=== PATIENT | male | born 1940 | race Caucasian/White ===

== ENCOUNTER 2016-12-16 15:42 | Emergency (ER) | payer OTHER ==
[~2016-12-16 15:42] MED LIST: ALLO300T2 PO; AMLO5TAB2 PO; LISI20TA3 PO; SIMV20TA5 PO
[2016-12-16 15:45] VITALS: TEMP 36.8
[2016-12-16] MEDS ORDERED: ASPI325T39 PO (16:18)
--- NOTE | 2016-12-16 17:19 | EMERGENCY ROOM VISIT NOTE ---
History Report prepared by Kendell: Soledad Valdes Under the Supervision of: Dr. Alma Chambers D.O. First contact with patient: 16:07 Chief Complaint: HEADACHE Stated Complaint: HEADACHE History of Present Illness The patient is a 76 year old male who presents to the Emergency Room with complaints of an intermittent headache that started this afternoon, around 1200. The patient's daughter states that the patient's headaches were so severe that he was hitting himself in the back of the head. His daughter checked his blood pressure at that time and it was 78/49. She rechecked his blood pressure prior to coming into the ED and it was 101/54. His daughter is unsure of what the patient's blood pressure usually is. The patient's adds that the patient did not complain of any headaches this morning at home after he woke up and ate breakfast. He denies any headaches currently. He also denies chest pain and nausea. The patient's daughter reports that the patient was also complaining of his eyes burning earlier today. Per the patient's , the patient has complained about headaches in the past and has seen a neurologist for it. The patient's adds that the neurologist stated that due to the patient's dementia, he may not know the difference between a headache and dizziness. Additionally, the patient fell a couple weeks ago, but did not get evaluated. The patient also fell last night and hit his back on the toilet. The patient's daughter thinks that the patient fell as a result of dizziness after standing up from the toilet. He has a history of a TIA that occurred 2 years ago. With the TIA, the patient was unresponsive and started shaking. The patient 's daughter states that they called the patient's PCP and they said to bring her into the ED. Source of History: patient, family (daughter), spouse/significant other ( ) Onset: this afternoon, around 1200 Position: head Quality: other (headache) Timing: intermittent Associated Symptoms: No chest pain, No nausea Note: eyes burning bilaterally, recent falls Review of Systems See HPI for pertinent positives & negatives. A total of 10 systems reviewed and were otherwise negative. Past Medical & Surgical Medical Problems: (1) Colon cancer (2) Hyperlipemia (3) Hypertension Nos (4) Prostate cancer Family History No significant family history Social History Smoking Status: Never Smoker Alcohol Use: none Drug Use: none Marital Status: Housing Status: lives with family Occupation Status: retired Current/Historical Medications Scheduled Allopurinol (Zyloprim), 300 MG PO DAILY Amlodipine Besylate (Norvasc), 5 MG PO DAILY Aspirin (Aspirin Ec), 325 MG PO DAILY Lisinopril (Prinivil), 20 MG PO DAILY Simvastatin (Zocor), 20 MG PO QPM Allergies Coded Allergies: Penicillins (Verified Allergy, Severe, SICK HIVES, 12/16/16) Physical Exam Vital Signs Date Time Temp Pulse Resp B/P Pulse Ox O2 Delivery O2 Flow Rate FiO2 12/16/16 19:34 78 20 130/68 97 12/16/16 18:11 78 18 128/68 98 Room Air 12/16/16 16:55 77 12/16/16 15:45 36.8 79 18 114/67 99 Room Air Physical Exam GENERAL: alert, well appearing, well nourished, no distress, non-toxic HEAD: no evidence of trauma EYE EXAM: normal conjunctiva, PERRL and EOM's grossly intact OROPHARYNX: no exudate, no erythema, lips, buccal mucosa, and tongue normal and mucous membranes are moist NECK: supple, no nuchal rigidity, no adenopathy, non-tender, no step-offs LUNGS: Clear to auscultation. Normal chest wall mechanics HEART: no murmurs, S1 normal and S2 normal ABDOMEN: abdomen soft, non-tender, normo-active bowel sounds, no masses, no rebound or guarding. BACK: Back is symmetrical on inspection and there is no deformity, no midline tenderness, no CVA tenderness. SKIN: no rashes and no bruising UPPER EXTREMITIES: upper extremities are grossly normal. LOWER EXTREMITIES: No pitting edema. NEURO EXAM: Normal sensorium, cranial nerves II-XII intact, normal speech, no facial droop, no ataxia, no weakness of arms, no weakness of legs. No drift. Finger to nose intact. Gross sensation intact. GCS: 15. Medical Decision & Procedures ER Provider Diagnostic Interpretation: CERVICAL SPINE CT CT DOSE: 1009.38 mGy.cm HISTORY: Trauma fall TECHNIQUE: Multiaxial CT images of the cervical spine were performed and reformatted in the sagittal and coronal plane without the use of contrast. COMPARISON: None. FINDINGS: No acute bony abnormality. Considerable degenerative change throughout the entire cervical region. Grade 1 physiologic subluxation of C2 on C3. Moderate degenerative change of the C1-C2 articulation. No evidence for compression deformity. IMPRESSION: No fractures within the cervical spine. Considerable degenerative change HEAD CT NONCONTRAST CT DOSE: HISTORY: Trauma fall, headache TECHNIQUE: Multiaxial CT images of the head were performed without the use of intravenous contrast. Comparison: 2014 Findings: The paranasal sinuses and mastoid air cells are clear. The calvarium and skull base are intact. The ventricles and sulci are within normal limits. There is no mass, hematoma, midline shift, or acute infarct. Old infarcts and or encephalomalacia involving the cerebellar hemispheres bilaterally. Calcification of the basal ganglia. Mild cerebral atrophy considered to be age-related. Impression: No acute intracranial abnormality. Chronic change. Electronically signed by: Mohit Gao M.D. 12/16/2016 5:57 PM Dictated Date/Time: 12/16/2016 5:55 PM The status of this report is Signed. Draft = Not yet reviewed or approved by Radiologist. Signed = Reviewed and approved by Radiologist. <AttendingPhy></AttendingPhy> <FamilyPhy>Ubaldo Zuniga M.D. (MEDICAL)</ FamilyPhy> <PrimaryPhy>Ubaldo Zuniga M.D. (MEDICAL)</PrimaryPhy> <UnitNumber> [id number]</UnitNumber> <VisitNumber>[id number]</VisitNumber> <PatientName> STEVENJENNIFER </PatientName> <DateOfBirth>1940</DateOfBirth> < Location>[facility]</Location> <ServiceDate>12/16/16</ServiceDate> <MNE>ESINDI</MNE> <OrderingPhy>Alma Chambers DO</OrderingPhy> <OrderingPhyMNE>f rep ord dr dugan </OrderingPhyMNE> <DictatingPhyMNE>f rep dict dr dugan</DictatingPhyMNE> < CCListMNE>f rep ct mne</CCListMNE> <AdmittingPhyMNE>f pt admit dr dugan</ AdmittingPhyMNE> <AttendingPhyMNE>f pt attend dr mne</AttendingPhyMNE> Laboratory Results 12/16/16 18:00 Red Blood Count 4.10, Mean Corpuscular Volume 83.2, Mean Corpuscular Hemoglobin 27.6, Mean Corpuscular Hemoglobin Concent 33.1, Mean Platelet Volume 9.4, Neutrophils (%) (Auto) 77.2, Lymphocytes (%) (Auto) 15.4, Monocytes (%) (Auto) 6.6, Eosinophils (%) (Auto) 0.3, Basophils (%) (Auto) 0.3, Neutrophils # (Auto) 8.63, Lymphocytes # (Auto) 1.72, Monocytes # (Auto) 0.74, Eosinophils # (Auto) 0.03, Basophils # (Auto) 0.03 12/16/16 18:00 Test 12/16/16 00:00 12/16/16 18:00 Urine Color YELLOW Urine Appearance CLEAR (CLEAR) Urine pH 5.0 (4.5-7.5) Urine Specific [place] 1.024 (1.000-1.030) Urine Protein NEG (NEG) Urine Glucose (UA) NEG (NEG) Urine Ketones TRACE (NEG) Urine Occult Blood NEG (NEG) Urine Nitrite NEG (NEG) Urine Bilirubin NEG (NEG) Urine Urobilinogen NEG (NEG) Urine Leukocyte Esterase NEG (NEG) White Blood Count 11.17 K/uL (4.8-10.8) Red Blood Count 4.10 M/uL (4.7-6.1) Hemoglobin 11.3 g/dL (14.0-18.0) Hematocrit 34.1 % (42-52) Mean Corpuscular Volume 83.2 fL (80-100) Mean Corpuscular Hemoglobin 27.6 pg (25-34) Mean Corpuscular Hemoglobin Concent 33.1 g/dl (32-36) Platelet Count 311 K/uL (130-400) Mean Platelet Volume 9.4 fL (7.4-10.4) Neutrophils (%) (Auto) 77.2 % Lymphocytes (%) (Auto) 15.4 % Monocytes (%) (Auto) 6.6 % Eosinophils (%) (Auto) 0.3 % Basophils (%) (Auto) 0.3 % Neutrophils # (Auto) 8.63 K/uL (1.4-6.5) Lymphocytes # (Auto) 1.72 K/uL (1.2-3.4) Monocytes # (Auto) 0.74 K/uL (0.11-0.59) Eosinophils # (Auto) 0.03 K/uL (0-0.5) Basophils # (Auto) 0.03 K/uL (0-0.2) RDW Standard Deviation 42.2 fL (36.4-46.3) RDW Coefficient of Variation 14.0 % (11.5-14.5) Immature Granulocyte % (Auto) 0.2 % Immature Granulocyte # (Auto) 0.02 K/uL (0.00-0.02) Anion Gap 8.0 mmol/L (3-11) Estimated GFR () 42.0 Estimated GFR (Non- 36.3 BUN/Creatinine Ratio 13.7 (10-20) Calcium Level 8.5 mg/dl (8.5-10.1) Total Bilirubin 0.3 mg/dl (0.2-1) Aspartate Amino Transf (AST/SGOT) 24 U/L (15-37) Alanine Aminotransferase (ALT/SGPT) 20 U/L (12-78) Alkaline Phosphatase 110 U/L (45-117) Troponin I < 0.015 ng/ml (0-0.045) Total Protein 7.3 gm/dl (6.4-8.2) Albumin 3.7 gm/dl (3.4-5.0) Globulin 3.6 gm/dl (2.5-4.0) Albumin/Globulin Ratio 1.0 (0.9-2) Laboratory results per my review. ECG Indication: altered mental status Rate (beats per minute): 73 Rhythm: normal sinus Findings: no acute ischemic change, no ectopy ED Course 1619: The patient was evaluated in room A8. A complete history and physical exam was performed. 1915: Pt with no recurrent headache, acting normally per family. They are comfortable taking the pt home. Aware of need for recheck of Cr by PCP, discussed ddx with family. They state pt poor water drinker. Discussed sx to watch/return for, they verbalized understanding and were agreeable with plan. Medical Decision Differential Diagnosis includes but is not limited to headache, tension headache , cluster headache, migraine, subarachnoid hemorrhage, meningitis, mass, central venous thrombus, concussion, trauma and epidural/subdural hemorrhage. Pt acting normally here, doubt related to occult infection, cva, trauma, sah, cerebellar infarct/bleed/mass, doubt related to worsening CKD, doubt hypertensive urgency/emergency. Pt with dementia, prior hx of TUCKER and dizziness , followed by neurology. Pt well appearing throughout. VS stable. Impression Primary Impression: Headache Additional Impressions: Chronic kidney disease (CKD) Dementia Scribe Attestation The scribe's documentation has been prepared under my direction and personally reviewed by me in its entirety. I confirm that the note above accurately reflects all work, treatment, procedures, and medical decision making performed by me. Departure Information Dispostion Home / Self-Care Referrals Ubaldo Zuniga M.D. (MEDICAL) (PCP) Patient Instructions My [facility] Problem Qualifiers Primary Impression: Headache Headache type: unspecified Headache chronicity pattern: episodic headache Intractability: not intractable Qualified Codes: R51 - Headache Additional Impressions: Chronic kidney disease (CKD) Chronic kidney disease stage: unspecified stage Qualified Codes: N18.9 - Chronic kidney disease, unspecified Dementia Dementia type: unspecified type Dementia behavioral disturbance: without behavioral disturbance Qualified Codes: F03.90 - Unspecified dementia without behavioral disturbance
--- NOTE | 2016-12-16 17:59 | DIAGNOSTIC IMAGING REPORT ---
HEAD CT NONCONTRAST CT DOSE: HISTORY: Trauma fall, headache TECHNIQUE: Multiaxial CT images of the head were performed without the use of intravenous contrast. Comparison: 2014 Findings: The paranasal sinuses and mastoid air cells are clear. The calvarium and skull base are intact. The ventricles and sulci are within normal limits. There is no mass, hematoma, midline shift, or acute infarct. Old infarcts and or encephalomalacia involving the cerebellar hemispheres bilaterally. Calcification of the basal ganglia. Mild cerebral atrophy considered to be age-related. Impression: No acute intracranial abnormality. Chronic change. Electronically signed by: Mohit Gao M.D. 12/16/2016 5:57 PM Dictated Date/Time: 12/16/2016 5:55 PM
--- NOTE | 2016-12-16 18:01 | DIAGNOSTIC IMAGING REPORT ---
CERVICAL SPINE CT CT DOSE: 1009.38 mGy.cm HISTORY: Trauma fall TECHNIQUE: Multiaxial CT images of the cervical spine were performed and reformatted in the sagittal and coronal plane without the use of contrast. COMPARISON: None. FINDINGS: No acute bony abnormality. Considerable degenerative change throughout the entire cervical region. Grade 1 physiologic subluxation of C2 on C3. Moderate degenerative change of the C1-C2 articulation. No evidence for compression deformity. IMPRESSION: No fractures within the cervical spine. Considerable degenerative change Electronically signed by: Mohit Gao M.D. 12/16/2016 5:59 PM Dictated Date/Time: 12/16/2016 5:57 PM
[2016-12-16 18:07] LABS: BASO % 0.3 %; BASO ABS # 0.03 K/uL (0-0.2); COMPLETE YES; EOS % 0.3 %; HEMATOCRIT 34.1 % (42-52); IG% 0.2 %; LYMPH % 15.4 %; LYMPH ABS # 1.72 K/uL (1.2-3.4); MEAN CELL VOLUME 83.2 fL (80-100); MEAN CORPUSCULAR HEMOGLOBIN 27.6 pg (25-34); MEAN CORPUSCULAR HGB CONC 33.1 g/dl (32-36); MEAN PLATELET VOLUME 9.4 fL (7.4-10.4); MONO % 6.6 %; NEUT % 77.2 %; PLATELET COUNT 311 K/uL (130-400); WHITE BLOOD COUNT 11.17 K/uL (4.8-10.8)
[2016-12-16 18:27] LABS: ALT/SGPT 20 U/L (12-78); AST/SGOT 24 U/L (15-37); BLOOD UREA NITROGEN 25 mg/dl (7-18); BUN/CREATININE RATIO 13.7 (10-20); CALCIUM 8.5 mg/dl (8.5-10.1); CARBON DIOXIDE 27 mmol/L (21-32); CHLORIDE 104 mmol/L (98-107); GLUCOSE 80 mg/dl (70-99); POTASSIUM 4.2 mmol/L (3.5-5.1); SODIUM 139 mmol/L (136-145)
[2016-12-16 18:31] LABS: ALKALINE PHOSPHATASE 110 U/L (45-117)
[2016-12-16 19:01] LABS: URINE APPEARANCE CLEAR (CLEAR); URINE BILIRUBIN NEG (NEG); URINE COLOR YELLOW; URINE NITRITE NEG (NEG); URINE SPECIFIC GRAVITY 1.024 (1.000-1.030); UROBILINOGEN NEG (NEG); ZZUR CULT IF INDIC CLEAN CATCH NO
[2016-12-16 19:04] LABS: MANUAL MICROSCOPIC REQUIRED? NO; REVIEW REQ? NO
[2016-12-16 19:34] VITALS: BP 130/68; PULSE 78; O2SAT 97
[2016-12-17] MEDS ORDERED: DONE10TA12 PO (16:03)
[2016-12-17] MEDS ORDERED: NMN10 PO (16:03)
[2016-12-17] MEDS ORDERED: INDO-24 PO (20:51)
[2016-12-17] MEDS ORDERED: ASPI325T45 PO (20:51)
== END 2016-12-16 19:35 | disposition home or self-care (01) ==
LOC: C.EDB 15:42 → C.EDA 19:35
DX: R51 Headache (principal); I12.9 Hypertensive chronic kidney disease with stage 1 through stage 4 chronic kidney disease, or unspecified chronic kidney disease; N18.9 Chronic kidney disease, unspecified; E78.5 Hyperlipidemia, unspecified; F03.90 Unspecified dementia, unspecified severity, without behavioral disturbance, psychotic disturbance, mood disturbance, and anxiety; Z85.46 Personal history of malignant neoplasm of prostate; Z85.038 Personal history of other malignant neoplasm of large intestine; Z79.82 Long term (current) use of aspirin; Z79.899 Other long term (current) drug therapy; Z88.0 Allergy status to penicillin

== ENCOUNTER 2016-12-17 15:35 | Observation (INO) | payer OTHER ==
[~2016-12-17] VITALS: Ht 167.6 cm; Wt 53.2 kg
[~2016-12-17 15:35] MED LIST changes: +ASPI325T39 PO
[2016-12-17] MEDS ORDERED: DONE10TA12 PO (16:03)
[2016-12-17] MEDS ORDERED: NMN10 PO (16:03)
[2016-12-17] MEDS ORDERED: SODIUM CHLORIDE 0.9% 1000ML 1,000 ML IV STA (17:23)
[2016-12-17] MEDS ORDERED: SODIUM CHLORIDE 0.9% 1000ML 1,000 ML IV ONE (17:23)
--- NOTE | 2016-12-17 17:30 | EMERGENCY ROOM VISIT NOTE ---
History Report prepared by Kendell: Farrukh Brumfield Under the Supervision of: Dr. Kye Mo M.D. First contact with patient: 17:18 Chief Complaint: OTHER COMPLAINT Stated Complaint: CHEST PAIN History of Present Illness The patient is a 76 year old male who presents to the Emergency Room with complaints of a sudden fall occurring around 1400 today. The family states that the patient was complaining of vertigo and everything spinning earlier. He then fell, and he was taken in an ambulance. The family states that he was here recently for kidney issues. Per the family, the patient was complaining about back pain earlier, though he states that he does not have any now. The patient denies chest pain, abdominal pain, and urinary symptoms. He has dementia and does not recall what happened. By report there was chest pain and he apparently had altered mental status. When seen yesterday he had low blood pressure in the field but was normotensive here. his blood work showed mild renal insufficiency. Source of History: patient, family Onset: 1400 Position: other (global) Quality: other (fall) Timing: other (sudden) Associated Symptoms: + back pain, No abdominal pain, No chest pain, No urinary symptoms Note: Associated symptoms: Dizziness Review of Systems See HPI for pertinent positives & negatives. A total of 10 systems reviewed and were otherwise negative, however his symptoms seem unreliable secondary to his dementia Past Medical & Surgical Medical Problems: (1) BPH (benign prostatic hypertrophy) (2) Colon cancer (3) Dyslipidemia (4) Gout (5) History of CVA (cerebrovascular accident) (6) Hx of sinus bradycardia (7) Hyperlipemia (8) Hypertension Nos (9) Mixed Alzheimer's and vascular dementia (10) Prostate cancer Surgical Problems: (1) H/O colonoscopy (2) History of surgery on arm (3) S/P partial colectomy (4) S/p prostate brachytherapy Old medical records were reviewed. Nurse's notes were reviewed and I agree with. Family History No significant family history Social History Smoking Status: Never Smoker Alcohol Use: none Drug Use: none Marital Status: Housing Status: lives with family Occupation Status: retired Current/Historical Medications Scheduled Allopurinol (Zyloprim), 300 MG PO DAILY Amlodipine Besylate (Norvasc), 5 MG PO DAILY Aspirin (Aspirin), 1 TAB PO DAILY Donepezil Hydrochloride (Aricept), 10 MG PO HS Lisinopril (Prinivil), 20 MG PO BID Memantine (Namenda), 10 MG PO BID Simvastatin (Zocor), 20 MG PO QPM Allergies Coded Allergies: Penicillins (Verified Allergy, Severe, SICK HIVES, 12/17/16) Physical Exam Vital Signs Date Time Temp Pulse Resp B/P Pulse Ox O2 Delivery O2 Flow Rate FiO2 12/17/16 20:00 36.7 70 16 106/70 97 Room Air 12/17/16 19:00 36.7 70 16 108/74 97 Room Air 12/17/16 18:00 70 16 111/64 97 12/17/16 16:10 36.7 88 16 96/48 96 Room Air Physical Exam General: Non-ill appearing older male in no acute distress.. Alert to person and place. Answering questions appropriately. HEENT: Normal cephalic atraumatic. Pupils are equal round and reactive to light. Extraocular movements are intact. Oropharynx is pink with moist mucous membranes. No swelling of the mouth lips or tongue. Neck: Supple with a midline trachea. No meningeal signs or stiffness, no JVD or bruits. No Stridor. Chest: Clear to auscultation bilaterally. No wheezes or rhonchi. No increased work of breathing. Heart: regular rate and rhythm. Abdomen: Soft nontender, nondistended without rebound guarding or rigidity. Extremities: No cyanosis clubbing or edema. No calf tenderness or assymetry Spine/Back. Non tender to palpation. No CVA tenderness Skin: Good turgor without rashes. Neurologic exam: Cranial nerves two through 12 are intact. Motor and sensation are intact and symmetrical throughout. Medical Decision & Procedures ER Provider Diagnostic Interpretation: X-ray results as stated below per interpretation by me and the radiologist: CHEST ONE VIEW PORTABLE CLINICAL HISTORY: CHEST PAIN dyspnea COMPARISON STUDY: 12/02/2014 FINDINGS: The bones soft tissues and hemidiaphragms are normal. The cardiomediastinal silhouette is normal. The lungs are clear. The pulmonary vasculature is normal. IMPRESSION: Negative chest. Electronically signed by: Mohit Gao M.D. 12/17/2016 5:37 PM Dictated Date/Time: 12/17/2016 5:37 PM Laboratory Results Test 12/17/16 17:55 12/17/16 18:04 Immature Granulocyte % (Auto) 0.3 % White Blood Count 13.36 K/uL (4.8-10.8) Red Blood Count 3.89 M/uL (4.7-6.1) Hemoglobin 10.7 g/dL (14.0-18.0) Hematocrit 32.3 % (42-52) Mean Corpuscular Volume 83.0 fL (80-100) Mean Corpuscular Hemoglobin 27.5 pg (25-34) Mean Corpuscular Hemoglobin Concent 33.1 g/dl (32-36) Platelet Count 296 K/uL (130-400) Mean Platelet Volume 9.7 fL (7.4-10.4) Neutrophils (%) (Auto) 89.5 % Lymphocytes (%) (Auto) 7.2 % Monocytes (%) (Auto) 2.8 % Eosinophils (%) (Auto) 0.1 % Basophils (%) (Auto) 0.1 % Neutrophils # (Auto) 11.96 K/uL (1.4-6.5) Lymphocytes # (Auto) 0.96 K/uL (1.2-3.4) Monocytes # (Auto) 0.38 K/uL (0.11-0.59) Eosinophils # (Auto) 0.01 K/uL (0-0.5) Basophils # (Auto) 0.01 K/uL (0-0.2) Immature Granulocyte # (Auto) 0.04 K/uL (0.00-0.02) Prothrombin Time 9.6 SECONDS (9.0-12.0) Prothromb Time International Ratio 0.9 (0.9-1.1) Activated Partial Thromboplast Time 22.6 SECONDS (21.0-31.0) Partial Thromboplastin Ratio 0.9 Total Bilirubin 0.2 mg/dl (0.2-1) Direct Bilirubin < 0.1 mg/dl (0-0.2) Aspartate Amino Transf (AST/SGOT) 23 U/L (15-37) Alanine Aminotransferase (ALT/SGPT) 19 U/L (12-78) Alkaline Phosphatase 97 U/L (45-117) Total Protein 6.9 gm/dl (6.4-8.2) Albumin 3.4 gm/dl (3.4-5.0) Lipase 396 U/L (73-393) Bedside Troponin I 0.000 ng/ml (0-0.045) Lab results reviewed by me Medications Administered Medications (Trade) Dose Ordered Sig/Alvin Route Start Time Stop Time Status Last Admin Dose Admin Sodium Chloride 1,000 ml @ 999 mls/hr Q1H1M STAT IV 12/17/16 17:23 12/17/16 18:23 DC 12/17/16 18:05 999 MLS/HR Sodium Chloride (Nss 1000ml) 1,000 ml @ 150 mls/hr Q6H40M ONCE IV 12/17/16 17:23 12/17/16 21:44 DC 12/17/16 18:05 150 MLS/HR ECG Indication: other (fall) Rate (beats per minute): 70 Rhythm: normal sinus Findings: PVC (occasional), no acute ischemic change Comparison ECG Date: 12/16/16 Change: PVC are new ED Course 1718: Past medical records reviewed. The patient was evaluated in room B9, and a complete history and physical examination were performed. 1723: Sodium Chloride 1000 ml @ 150 mls/hr IV, Sodium Chloride 1000 ml @ 999 mls /hr IV 0: I reevaluated the patient, and he was resting comfortably. 1950: I discussed the patient's case with Dr. Florentino. He is going to evaluate the patient for further treatment Medical Decision Differentials include, but are not limited to; syncope, cardiac disease, seizure , infection, dehydration, electrolyte or metabolic abnormality. This patient comes in as described above . he's had frequent falls and this is a second visit in 24 hours. There may have a some confusion or chest pain as well and he is a very poor historian secondary dementia. At present, He appears in no distress . his initial blood pressure was low today in the field and responded to fluids. he's had no fever. IV access established and he was gently hydrated. I did not repeat his CAT scan of his head as he had one yesterday and has no external signs of trauma. EKG does not suggest acute coronary syndrome or arrhythmias. Cardiac markers are negative. His creatinine is up to 1.9 and he may be a little dry. He has nothing to suggest infection or sepsis thus far. I do think he needs to be admitted as he continues to have frequent falls to rule out cardiac and neurologic problems as well. I have consulted the [facility] hospitalist group who saw him in the emergency department and will admit him for these measures. Consults Time Called: 1944 Consulting Physician: Dr. Florentino Returned Call: 1949 I discussed the patient's case with Dr. Florentino. He is going to evaluate the patient for further treatment Impression Primary Impression: Weakness Additional Impressions: Frequent falls Chest pain Hypotension Scribe Attestation The scribe's documentation has been prepared under my direction and personally reviewed by me in its entirety. I confirm that the note above accurately reflects all work, treatment, procedures, and medical decision making performed by me. Departure Information Dispostion Being Evaluated By Hospitalist Referrals Ubaldo Zuniga M.D. (MEDICAL) (PCP) Patient Instructions My [facility] Problem Qualifiers
--- NOTE | 2016-12-17 17:38 | DIAGNOSTIC IMAGING REPORT ---
CHEST ONE VIEW PORTABLE CLINICAL HISTORY: CHEST PAIN dyspnea COMPARISON STUDY: 12/02/2014 FINDINGS: The bones soft tissues and hemidiaphragms are normal. The cardiomediastinal silhouette is normal. The lungs are clear. The pulmonary vasculature is normal. IMPRESSION: Negative chest. Electronically signed by: Mohit Gao M.D. 12/17/2016 5:37 PM Dictated Date/Time: 12/17/2016 5:37 PM
[2016-12-17 18:08] LABS: BASO % 0.1 %; BASO ABS # 0.01 K/uL (0-0.2); COMPLETE YES; EOS % 0.1 %; HEMATOCRIT 32.3 % (42-52); IG% 0.3 %; LYMPH % 7.2 %; LYMPH ABS # 0.96 K/uL (1.2-3.4); MEAN CORPUSCULAR HEMOGLOBIN 27.5 pg (25-34); MEAN CORPUSCULAR HGB CONC 33.1 g/dl (32-36); MEAN PLATELET VOLUME 9.7 fL (7.4-10.4); MONO % 2.8 %; NEUT % 89.5 %; PLATELET COUNT 296 K/uL (130-400); RED BLOOD COUNT 3.89 M/uL (4.7-6.1); WHITE BLOOD COUNT 13.36 K/uL (4.8-10.8)
[2016-12-17 18:17] LABS: INR 0.9 (0.9-1.1); PARTIAL THROMBOPLASTIN RATIO 0.9; PROTHROMBIN TIME (PATIENT) 9.6 SECONDS (9.0-12.0)
[2016-12-17 18:27] LABS: ALT/SGPT 19 U/L (12-78); AST/SGOT 23 U/L (15-37); BLOOD UREA NITROGEN 25 mg/dl (7-18); BUN/CREATININE RATIO 13.2 (10-20); CALCIUM 8.5 mg/dl (8.5-10.1); CARBON DIOXIDE 24 mmol/L (21-32); CHLORIDE 107 mmol/L (98-107); GLUCOSE 114 mg/dl (70-99); POTASSIUM 4.6 mmol/L (3.5-5.1); SODIUM 142 mmol/L (136-145)
[2016-12-17 18:30] LABS: ALKALINE PHOSPHATASE 97 U/L (45-117)
[2016-12-17] MEDS ORDERED: ASPI325T45 PO (20:51)
[2016-12-17] MEDS ORDERED: INDO-24 PO (20:51)
[2016-12-17] MEDS ORDERED: ONDANSETRON INJ 2 MG/ML 2 ML VIAL IV PRN (21:00)
[2016-12-17] MEDS ORDERED: SODIUM CHLORIDE 0.9% 1000ML 1,000 ML IV SCH (21:00)
[2016-12-17] MEDS ORDERED: ACETAMINOPHEN 325 MG TAB PO PRN (21:00)
[2016-12-17] MEDS ORDERED: IV FLUIDS COMPLETED PRN (21:15)
--- NOTE | 2016-12-17 21:39 | History and Physical ---
History & Physical Date & Time of Service: Dec 17, 2016 at 20:54 Chief Complaint: Chest Pain Primary Care Physician: Ubaldo Zuniga M.D. (MEDICAL) History of Present Illness Source: patient, family (daughter at bedside), clinic records, hospital records This is a 76 year old male with PMH of mixed Alzheimer's and vascular dementia, hx CVA, HTN, HL, and other problems listed below who presents to the ED s/p fall. History not reliable from patient due to dementia. Daughter at bedside states mental status is at baseline with short term memory loss, repetitiveness , disorientation to date. Today he was at his other daughter's house, was c/o dizziness, was seen ambulating, then at some point later was found on the floor and with incontinence of stool. Unknown if there was head trauma or LOC. Daughter states he fell total of 4x in past 2 days but details are unknown to her. She was told he fell on ice and in the bathroom but unclear the mechanism of fall. He is supposed to use a cane but ambulates unassisted. Pt was c/o occipital head throbbing earlier in the ER but patient denies headache or dizziness currently. Patient denies recent fever, URI symptoms, focal neuro symptoms, tinnitus, hearing loss, chest pain, SOB, N/V, abdominal pain, any other pain. Daughter states his stool was loose today. No known bleeding per the daughter. Patient lives with his who is not present currently. Unclear how well he has been eating. Daughter does not know the details of his prior CVA. Pt was brought to ER yesterday by other daughter for TUCKER and had CT head showing no acute findings. The family present at that time reported that 2 nights ago patient fell as a result of dizziness after standing up from the toilet. Past Medical/Surgical History Medical Problems: (1) BPH (benign prostatic hypertrophy) Status: Chronic (2) Colon cancer Status: Resolved (3) Dyslipidemia Status: Chronic (4) Gout Status: Chronic (5) History of CVA (cerebrovascular accident) Status: Chronic (6) Hx of sinus bradycardia Status: Chronic (7) Hyperlipemia Status: Chronic (8) Hypertension Nos Status: Chronic (9) Mixed Alzheimer's and vascular dementia Status: Chronic (10) Prostate cancer Status: Resolved Surgical Problems: (1) H/O colonoscopy Status: Chronic (2) History of surgery on arm Status: Chronic (3) S/P partial colectomy Status: Chronic (4) S/p prostate brachytherapy Status: Chronic Family History FH: CAD (coronary artery disease) FATHER Social History Smoking Status: Former Smoker (quit ) Alcohol Use: none Drug Use: none Marital Status: Housing status: lives with significant other Occupational Status: retired Immunizations History of Influenza Vaccine: Unknown Influenza Vaccine Date: Jul 23, 2009 History of Tetanus Vaccine?: Unknown History of Pneumococcal: Unknown Pneumococcal Date: Dec 22, 2008 History of Hepatitis B Vaccine: Unknown Multi-Drug Resistant Organisms History of MDRO: No Allergies Coded Allergies: Penicillins (Verified Allergy, Severe, SICK HIVES, 12/17/16) Home Medications Scheduled Allopurinol (Zyloprim), 300 MG PO DAILY Amlodipine Besylate (Norvasc), 5 MG PO DAILY Aspirin (Aspirin), 1 TAB PO DAILY Donepezil Hydrochloride (Aricept), 10 MG PO HS Lisinopril (Prinivil), 20 MG PO BID Memantine (Namenda), 10 MG PO BID Simvastatin (Zocor), 20 MG PO QPM Review of Systems Unable to obtain a reliable ROS due to patient's dementia. Physical Exam Vital Signs Date Time Temp Pulse Resp B/P Pulse Ox O2 Delivery O2 Flow Rate FiO2 12/17/16 18:00 70 16 111/64 97 12/17/16 16:10 36.7 88 16 96/48 96 Room Air General Appearance: + thin, + pertinent finding (alert pleasantly confused 76 year old male, daughter at bedside) Head: normocephalic, atraumatic Eyes: normal inspection, PERRL, EOMI ENT: hearing grossly normal, pharynx normal Neck: supple, trachea midline Respiratory/Chest: lungs clear, normal breath sounds, no respiratory distress Cardiovascular: regular rate, rhythm, no murmur Abdomen/GI: normal bowel sounds, non tender, soft Extremities/Musculoskelatal: no calf tenderness, no pedal edema 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 poor short term memory. ) Skin: normal color, warm/dry, + pertinent finding (poor skin turgor) Diagnostics Laboratory Results Results Past 24 Hours Test 12/17/16 17:55 Range/Units White Blood Count 13.36 4.8-10.8 K/uL Red Blood Count 3.89 4.7-6.1 M/uL Hemoglobin 10.7 14.0-18.0 g/dL Hematocrit 32.3 42-52 % Mean Corpuscular Volume 83.0 80-100 fL Mean Corpuscular Hemoglobin 27.5 25-34 pg Mean Corpuscular Hemoglobin Concent 33.1 32-36 g/dl Platelet Count 296 130-400 K/uL Mean Platelet Volume 9.7 7.4-10.4 fL Neutrophils (%) (Auto) 89.5 % Lymphocytes (%) (Auto) 7.2 % Monocytes (%) (Auto) 2.8 % Eosinophils (%) (Auto) 0.1 % Basophils (%) (Auto) 0.1 % Neutrophils # (Auto) 11.96 1.4-6.5 K/uL Lymphocytes # (Auto) 0.96 1.2-3.4 K/uL Monocytes # (Auto) 0.38 0.11-0.59 K/uL Eosinophils # (Auto) 0.01 0-0.5 K/uL Basophils # (Auto) 0.01 0-0.2 K/uL RDW Standard Deviation 42.7 36.4-46.3 fL RDW Coefficient of Variation 14.1 11.5-14.5 % Immature Granulocyte % (Auto) 0.3 % Immature Granulocyte # (Auto) 0.04 0.00-0.02 K/uL Prothrombin Time 9.6 9.0-12.0 SECONDS Prothromb Time International Ratio 0.9 0.9-1.1 Activated Partial Thromboplast Time 22.6 21.0-31.0 SECONDS Partial Thromboplastin Ratio 0.9 Sodium Level 142 136-145 mmol/L Potassium Level 4.6 3.5-5.1 mmol/L Chloride Level 107 98-107 mmol/L Carbon Dioxide Level 24 21-32 mmol/L Anion Gap 11.0 3-11 mmol/L Blood Urea Nitrogen 25 7-18 mg/dl Creatinine 1.90 0.60-1.40 mg/dl Est Creatinine Clear Calc Drug Dose 25.7 ml/min Estimated GFR () 39.4 Estimated GFR (Non- 34.0 BUN/Creatinine Ratio 13.2 10-20 Random Glucose 114 70-99 mg/dl Calcium Level 8.5 8.5-10.1 mg/dl Total Bilirubin 0.2 0.2-1 mg/dl Direct Bilirubin < 0.1 0-0.2 mg/dl Aspartate Amino Transf (AST/SGOT) 23 15-37 U/L Alanine Aminotransferase (ALT/SGPT) 19 12-78 U/L Alkaline Phosphatase 97 45-117 U/L Total Protein 6.9 6.4-8.2 gm/dl Albumin 3.4 3.4-5.0 gm/dl Lipase 396 73-393 U/L Diagnostic Radiology CHEST ONE VIEW PORTABLE CLINICAL HISTORY: CHEST PAIN dyspnea COMPARISON STUDY: 12/02/2014 FINDINGS: The bones soft tissues and hemidiaphragms are normal. The cardiomediastinal silhouette is normal. The lungs are clear. The pulmonary vasculature is normal. IMPRESSION: Negative chest. Impression Assessment and Plan HEADACHE AND MULTIPLE FALLS CT head 12/16/16- no acute abnormality; + old infarcts and or encephalomalacia involving the cerebellar hemispheres bilaterally. Calcification of the basal ganglia. Mild cerebral atrophy considered to be age-related. CT c-spine 12/16/16- No fractures within the cervical spine. Considerable degenerative change Follows w/ neurology; on last clinic note Dr. Malcolm stated to obtain MRI with and without contrast if headaches persist Will hydrate overnight with goal of improving Creatinine before exposing pt to contrast for MRI Check orthostatic VS Consult neurology PT and OT evaluations CHIOMA Creat is 1.9; baseline 1.1 in May 2016 Likely prerenal from dehydration Given IVF's in ER Continue gentle IVF's Hold lisinopril BORDERLINE BP Hold home antihypertensives Treating with IVF's ANEMIA Unknown etiology VASCULAR DEMENTIA Continue aspirin and statin ALZHEIMER'S DEMENTIA Continue Aricept and Namenda DYSLIPIDEMIA Continue DVT PROPHYLAXIS Heparin SQ DISPOSITION Lives with ; daughter Kalli who is closely involved with patient's care was updated by phone by Dr. Reid (phone ) Consult social media content specialist for discharge planning Follows with Dr. Zuniga for primary care Patient seen in collaboration with Dr. Reid. Please see her addendum. I have seen, examined and discussed this patient with Sherrill Vargas and I agree with the above note. Patient with recent frequent headaches, occasional vertigo and unwitnessed falls. Patient is a poor historian due to dementia and family are not good historians either. Vitals stable. PE: General- awake; alert; NAD Eyes- EOMI; no scleral icterus Neck- no stridor; trachea midline Lungs- CTA bilaterally; no wheezes/crackles Heart- RRR; no m/r/g Abdomen- soft; NTND; nBS Back- no gross abnormalities Extremities- no c/c/e; no deformity Neuro- strength 5/5 bilateral UE and LE Skin- no appreciable rash or bruise Labs, imaging and EKG reviewed. Headaches/falls: Neither patient nor family provide clear history. Patient follows with Dr. Roberts. Consult Neurology. Dr. Roberts mentioned MRI combo if symptoms persist. Will hold at this time to improve renal function prior. Perhaps dementia medications could be contributing to dizziness? Check orthostatics. PT/OT evaluations. CT head and c-spine from yesterday negative. HTN: Blood pressures low-normal. Hold antihypertensives. CHIOMA: Last creatinine in May was normal. Hold antihypertensives. Gentle hydration with IVF's. Agree with remainder of plan as outlined above. VTE Prophylaxis VTE Risk Assessment Done? Y/N: Yes Risk Level: Moderate
[2016-12-17 21:42] VITALS: BP 151/70; PULSE 88; TEMP 37.1; O2SAT 94
[2016-12-17 22:20] VITALS: BP 151/70; PULSE 88; TEMP 37.1; Ht 167.6 cm; Wt 53.2 kg
[2016-12-17] MEDS: HEPARIN SOD 5000 UNIT/0.5 ML CARP SQ SCH (22:32)
[2016-12-17 23:25] VITALS: BP 109/64; PULSE 73; TEMP 36.8; O2SAT 97
[2016-12-18 06:26] LABS: HEMATOCRIT 30.7 % (42-52); MEAN CELL VOLUME 84.6 fL (80-100); MEAN CORPUSCULAR HEMOGLOBIN 27.5 pg (25-34); MEAN CORPUSCULAR HGB CONC 32.6 g/dl (32-36); PLATELET COUNT 278 K/uL (130-400); RED BLOOD COUNT 3.63 M/uL (4.7-6.1); WHITE BLOOD COUNT 8.22 K/uL (4.8-10.8)
[2016-12-18] MEDS: HEPARIN SOD 5000 UNIT/0.5 ML CARP SQ SCH ×3 (06:30→21:47)
[2016-12-18 06:56] LABS: BUN/CREATININE RATIO 16.5 (10-20); CALCIUM 8.4 mg/dl (8.5-10.1); CREATININE 1.3 mg/dl (0.60-1.40); POTASSIUM 4.4 mmol/L (3.5-5.1)
[2016-12-18 07:29] VITALS: BP 104/62; PULSE 74; TEMP 36.9; O2SAT 95
[2016-12-18] MEDS ORDERED: MEMANTINE 10 MG TAB PO SCH (09:00)
[2016-12-18] MEDS: ALLOPURINOL 300 MG TAB PO SCH (09:47)
[2016-12-18] MEDS: ASPIRIN 325 MG ECTAB PO SCH (09:47)
--- NOTE | 2016-12-18 10:38 | DIAGNOSTIC IMAGING REPORT ---
HEAD CT NONCONTRAST CT DOSE: 601.98 mGy.cm HISTORY: Trauma. Mental status change. fall with head trauma question shd TECHNIQUE: Multiaxial CT images of the head were performed without the use of intravenous contrast. Comparison: 12/16/2016 Findings: The paranasal sinuses and mastoid air cells are clear. Stable scattered encephalomalacia of the cerebellar hemispheres bilaterally. Mild atrophy unchanged. Mild chronic small vessel change also stable. No evidence for new or interval process. No change in the prior exam. Impression: Chronic and age-related change. No acute intracranial abnormality. No change from the prior study. Electronically signed by: Mohit Gao M.D. 12/18/2016 10:37 AM Dictated Date/Time: 12/18/2016 10:32 AM
--- NOTE | 2016-12-18 11:18 | Progress Note ---
Medicine Progress Note Date & Time of Visit: Dec 18, 2016 at 11:10. Subjective patient seen resting in bedside chair oriented x 2, pleasant, not in distress comfortable denies headache, dizziness, nausea, focal weakness/numbness no abdominal pain, diarrhea denies other symptoms Objective Last 8 Hrs Date Time Temp Pulse Resp B/P Pulse Ox O2 Delivery O2 Flow Rate FiO2 12/18/16 07:29 36.9 74 16 104/62 95 Room Air Physical Exam: General- oriented x 2, not in distress, speaks in sentences with no effort Eyes- EOMI, anicteric ENT- oropharynx clear Neck- supple, no JVD, no adenopathy Lungs- clear breath sounds bilaterally Heart- normar rate, regular rhythm; no murmurs Abdomen- normal bowel sounds, soft, nontender Extremities- no pretibial edema, no calf tenderness; peripheral pulses intact Neuro- alert, oriented x 2; no gross focal neuro deficits Skin- warm & dry Laboratory Results: Last 24 Hours Test 12/17/16 17:55 12/17/16 18:04 12/18/16 06:01 12/18/16 10:42 White Blood Count 13.36 K/uL 8.22 K/uL Red Blood Count 3.89 M/uL 3.63 M/uL Hemoglobin 10.7 g/dL 10.0 g/dL Hematocrit 32.3 % 30.7 % Mean Corpuscular Volume 83.0 fL 84.6 fL Mean Corpuscular Hemoglobin 27.5 pg 27.5 pg Mean Corpuscular Hemoglobin Concent 33.1 g/dl 32.6 g/dl Platelet Count 296 K/uL 278 K/uL Mean Platelet Volume 9.7 fL 10.0 fL Neutrophils (%) (Auto) 89.5 % Lymphocytes (%) (Auto) 7.2 % Monocytes (%) (Auto) 2.8 % Eosinophils (%) (Auto) 0.1 % Basophils (%) (Auto) 0.1 % Neutrophils # (Auto) 11.96 K/uL Lymphocytes # (Auto) 0.96 K/uL Monocytes # (Auto) 0.38 K/uL Eosinophils # (Auto) 0.01 K/uL Basophils # (Auto) 0.01 K/uL RDW Standard Deviation 42.7 fL 44.1 fL RDW Coefficient of Variation 14.1 % 14.2 % Immature Granulocyte % (Auto) 0.3 % Immature Granulocyte # (Auto) 0.04 K/uL Prothrombin Time 9.6 SECONDS Prothromb Time International Ratio 0.9 Activated Partial Thromboplast Time 22.6 SECONDS Partial Thromboplastin Ratio 0.9 Sodium Level 142 mmol/L 143 mmol/L Potassium Level 4.6 mmol/L 4.4 mmol/L Chloride Level 107 mmol/L 109 mmol/L Carbon Dioxide Level 24 mmol/L 26 mmol/L Anion Gap 11.0 mmol/L 8.0 mmol/L Blood Urea Nitrogen 25 mg/dl 22 mg/dl Creatinine 1.90 mg/dl 1.30 mg/dl Est Creatinine Clear Calc Drug Dose 25.7 ml/min 37.5 ml/min Estimated GFR () 39.4 62.3 Estimated GFR (Non- 34.0 53.8 BUN/Creatinine Ratio 13.2 16.5 Random Glucose 114 mg/dl 85 mg/dl Calcium Level 8.5 mg/dl 8.4 mg/dl Total Bilirubin 0.2 mg/dl Direct Bilirubin < 0.1 mg/dl Aspartate Amino Transf (AST/SGOT) 23 U/L Alanine Aminotransferase (ALT/SGPT) 19 U/L Alkaline Phosphatase 97 U/L Total Protein 6.9 gm/dl Albumin 3.4 gm/dl Lipase 396 U/L Bedside Troponin I 0.000 ng/ml Assessment & Plan 76 male with history of Hypertension, CVA, Dementia - Alzheimer and Vascular presenting with multiple falls. HEADACHE AND MULTIPLE FALLS UNDERLYING DEMENTIA - Alzheimer and Vascular Type CT head 12/16/16- no acute abnormality; + old infarcts and or encephalomalacia involving the cerebellar hemispheres bilaterally. Calcification of the basal ganglia. Mild cerebral atrophy considered to be age-related. CT c-spine 12/16/16- No fractures within the cervical spine. Considerable degenerative change Follows w/ neurology Dr. Malcolm - repeat CT head 12/18/16: no acute findings - Falls may be due to Orthostasis, BP borderline in the setting of Dementia, Old Cerebellar Infarcts check Ortho VS d/c Amlo and Lisinopril - Neurology consulted, awaiting recommendations ACUTE RENAL FAILURE Creat is 1.9; baseline 1.1 in May 2016 Likely prerenal from dehydration - given IV fluids crea improved to 1.3 - d/c Lisinopril monitor ANEMIA - Baseline ~12 now 10 - no signs of overt GI bleed - check anemia panel VASCULAR DEMENTIA Continue aspirin and statin ALZHEIMER'S DEMENTIA Continue Aricept and Namenda DYSLIPIDEMIA Continue Simvastatin DVT PROPHYLAXIS Heparin SQ DISPOSITION Lives with ; daughter Kalli who is closely involved with patient's care was updated by phone by Dr. Reid (phone ) may need SNF/Rehab Consult home health care social worker for discharge planning Follows with Dr. Zuniga for primary care Current Inpatient Medications: Current Inpatient Medications Medications (Trade) Dose Ordered Sig/Alvin Route Start Time Stop Time Status Last Admin Dose Admin Heparin Sodium (Porcine) (Heparin Sq 5000 Unit/0.5ml) 5,000 unit Q8 SQ 12/17/16 22:00 01/16/17 20:59 12/18/16 06:30 5,000 UNIT Acetaminophen (Tylenol Tab) 650 mg Q4H PRN PO 12/17/16 21:00 01/16/17 20:59 Ondansetron HCl (Zofran Inj) 4 mg Q6H PRN IV 12/17/16 21:00 01/16/17 20:59 Miscellaneous (Iv Fluids Completed) 1 ea PRN PRN N/A 12/17/16 21:15 12/17/17 21:14 Allopurinol (Zyloprim Tab) 300 mg DAILY PO 12/18/16 09:00 01/17/17 08:59 12/18/16 09:47 300 MG Aspirin (Ecotrin Tab) 325 mg DAILY PO 12/18/16 09:00 01/17/17 08:59 12/18/16 09:47 325 MG Donepezil HCl (Aricept Tab) 10 mg HS PO 12/18/16 21:00 01/17/17 20:59 Memantine (Namenda Tab) 10 mg BID PO 12/18/16 09:00 01/17/17 08:59 12/18/16 09:48 10 MG Simvastatin (Zocor Tab) 20 mg QPM PO 12/18/16 21:00 01/17/17 20:59
[2016-12-18 12:11] VITALS: BP_SYST 124; BP_SYST 135; BP_SYST 142; BP_DIAS 64; BP_DIAS 77; PULSE 66; PULSE 75
--- NOTE | 2016-12-18 13:52 | Neurology Consultation ---
Neurology Consultation Date of Consultation: Dec 18, 2016. Attending Physician: Basim Moran MD Primary Care Physician: Ubaldo Zuniga M.D. (MEDICAL) Reason for Consultation: headache falls History of Present Illness Source: patient, family, spouse Ti is a 76 year old male with PMH of mixed Alzheimer's and vascular dementia , hx CVA, HTN, HL. Who was brought to the ED because of a fall. and sister are at bedside states mental status is at baseline with short term memory loss , repetitiveness, disorientation to date. He was at his daughter's house, was c /o dizziness, was seen ambulating, he had a fall and then was incontinent of stool. His states he doesn't fall at home but he has had 2 falls at his daughters house. He was told to use a cane but ambulates. he has been leaving the house without telling his where he is going. He usually walks to his daughters or to his sisters house which is several blocks away and he has to cross a busy street. She states he eats well at home but not sure how he eats at this daughters home. he fell 2 days ago patient fell as a result of dizziness after standing up from the toilet. He was found to have acute kidney failure and was given IV fluids. He currently denies pain. His also states he is seeing thinks and acting agressive at time. He has been on the Aricept and the Namenda for about 2 years. She is not aware of the strokes in the past but she is his 2nd . denies CP, SOB, abdominal pain, weakness, numbness tingling, vision changes. Past Medical/Surgical History Medical Problems: (1) Chest pain Status: Acute (2) Closed head injury Status: Acute (3) Frequent falls Status: Acute (4) Headache Status: Acute (5) Hypotension Status: Acute (6) Weakness Status: Acute Social History Alcohol Use: none Drug Use: none Marital Status: Housing Status: lives with family Occupation Status: retired Allergies Coded Allergies: Penicillins (Verified Allergy, Severe, SICK HIVES, 12/17/16) Current Inpatient Medications Current Inpatient Medications Medications (Trade) Dose Ordered Sig/Alvin Route Start Time Stop Time Status Last Admin Dose Admin Heparin Sodium (Porcine) (Heparin Sq 5000 Unit/0.5ml) 5,000 unit Q8 SQ 12/17/16 22:00 01/16/17 20:59 12/18/16 06:30 5,000 UNIT Acetaminophen (Tylenol Tab) 650 mg Q4H PRN PO 12/17/16 21:00 01/16/17 20:59 Ondansetron HCl (Zofran Inj) 4 mg Q6H PRN IV 12/17/16 21:00 01/16/17 20:59 Miscellaneous (Iv Fluids Completed) 1 ea PRN PRN N/A 12/17/16 21:15 12/17/17 21:14 Allopurinol (Zyloprim Tab) 300 mg DAILY PO 12/18/16 09:00 01/17/17 08:59 12/18/16 09:47 300 MG Aspirin (Ecotrin Tab) 325 mg DAILY PO 12/18/16 09:00 01/17/17 08:59 12/18/16 09:47 325 MG Donepezil HCl (Aricept Tab) 10 mg HS PO 12/18/16 21:00 01/17/17 20:59 Memantine (Namenda Tab) 10 mg BID PO 12/18/16 09:00 01/17/17 08:59 12/18/16 09:48 10 MG Simvastatin (Zocor Tab) 20 mg QPM PO 12/18/16 21:00 01/17/17 20:59 Physical Exam Vital Signs (Past 24 Hrs): Date Time Temp Pulse Resp B/P Pulse Ox O2 Delivery O2 Flow Rate FiO2 12/18/16 12:11 66 124/64 69 135/77 75 142/77 12/18/16 09:43 Room Air 12/18/16 07:29 36.9 74 16 104/62 95 Room Air 12/17/16 23:30 Room Air 12/17/16 23:25 36.8 73 18 109/64 97 Room Air 12/17/16 22:20 37.1 88 16 151/70 Room Air 12/17/16 21:42 37.1 88 16 151/70 94 Room Air 12/17/16 21:00 36.7 70 16 112/74 97 Room Air 12/17/16 20:00 36.7 70 16 106/70 97 Room Air 12/17/16 19:00 36.7 70 16 108/74 97 Room Air 12/17/16 18:00 70 16 111/64 97 12/17/16 16:10 36.7 88 16 96/48 96 Room Air Physical Exam: Constitutional appearance nourished, normal Ears, Nose, Mouth and Throat: mucous membranes moist, no injection and skin multiple skin abrasions and ecchymosis Cardiovascular: normal S-1 and S-2 and regular rate and rhythm Respiratory: clear to auscultation (CTA) and no rales, rhonchi or wheeze Musculoskeletal: no peripheral edema and good distal pulses Skin: no stigmata of neurocutaneous disease noted and normal and intact Eyes: extraocular muscles intact (EOMI) and pupils equal, round and reactive to light (PERRL) NEUROLOGIC EXAMINATION: Mental status: Alert and interactive Oriented to [facility], doesn't know the year but knows its spring, can say no ifs ands or buts, can stick out tongue point to the ceiling, close eyes Oriented to person Speech fluent with no evidence of aphasia Cranial Nerves smile, eye brow raise symmetric, tongue midline Reflexes: Deep tendon reflexes were symmetrical and graded 2/5. Plantar responses were flexor. 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, hip flex patellar flex ext plantar flex ext Laboratory Results Past 24 Hours: 12/18/16 06:01 12/18/16 06:01 Test 12/17/16 17:55 12/17/16 18:04 12/18/16 06:01 12/18/16 11:52 Immature Granulocyte % (Auto) 0.3 % White Blood Count 13.36 K/uL (4.8-10.8) Red Blood Count 3.89 M/uL (4.7-6.1) 3.63 M/uL (4.7-6.1) Hemoglobin 10.7 g/dL (14.0-18.0) Hematocrit 32.3 % (42-52) Mean Corpuscular Volume 83.0 fL (80-100) 84.6 fL (80-100) Mean Corpuscular Hemoglobin 27.5 pg (25-34) 27.5 pg (25-34) Mean Corpuscular Hemoglobin Concent 33.1 g/dl (32-36) 32.6 g/dl (32-36) Platelet Count 296 K/uL (130-400) Mean Platelet Volume 9.7 fL (7.4-10.4) 10.0 fL (7.4-10.4) Neutrophils (%) (Auto) 89.5 % Lymphocytes (%) (Auto) 7.2 % Monocytes (%) (Auto) 2.8 % Eosinophils (%) (Auto) 0.1 % Basophils (%) (Auto) 0.1 % Neutrophils # (Auto) 11.96 K/uL (1.4-6.5) Lymphocytes # (Auto) 0.96 K/uL (1.2-3.4) Monocytes # (Auto) 0.38 K/uL (0.11-0.59) Eosinophils # (Auto) 0.01 K/uL (0-0.5) Basophils # (Auto) 0.01 K/uL (0-0.2) Immature Granulocyte # (Auto) 0.04 K/uL (0.00-0.02) Prothrombin Time 9.6 SECONDS (9.0-12.0) Prothromb Time International Ratio 0.9 (0.9-1.1) Activated Partial Thromboplast Time 22.6 SECONDS (21.0-31.0) Partial Thromboplastin Ratio 0.9 Total Bilirubin 0.2 mg/dl (0.2-1) Direct Bilirubin < 0.1 mg/dl (0-0.2) Aspartate Amino Transf (AST/SGOT) 23 U/L (15-37) Alanine Aminotransferase (ALT/SGPT) 19 U/L (12-78) Alkaline Phosphatase 97 U/L (45-117) Total Protein 6.9 gm/dl (6.4-8.2) Albumin 3.4 gm/dl (3.4-5.0) Lipase 396 U/L (73-393) Bedside Troponin I 0.000 ng/ml (0-0.045) RDW Standard Deviation 44.1 fL (36.4-46.3) RDW Coefficient of Variation 14.2 % (11.5-14.5) Anion Gap 8.0 mmol/L (3-11) Est Creatinine Clear Calc Drug Dose 37.5 ml/min Estimated GFR () 62.3 Estimated GFR (Non- 53.8 BUN/Creatinine Ratio 16.5 (10-20) Calcium Level 8.4 mg/dl (8.5-10.1) Magnesium Level 2.5 mg/dl (1.8-2.4) Vitamin B12 Level 298 pg/mL (211-911) Imaging CT head- Findings: The paranasal sinuses and mastoid air cells are clear. The calvarium and skull base are intact. The ventricles and sulci are within normal limits. There is no mass, hematoma, midline shift, or acute infarct. Old infarcts and or encephalomalacia involving the cerebellar hemispheres bilaterally. Calcification of the basal ganglia. Mild cerebral atrophy considered to be age-related. Impression 76 year old male s/p fall and headaches with hx dementia Plan 1. no acute findings on CT head 2. unclear the mechanism of the fall 3. Aricept 10 mg hs- d/c due to reported hallucinations 4. stopped Namenda will re assess in out patient clinic 5. PT. OT for discharge needs 6. EEG may be helpful not clear if there was a LOC- waiting read 7. continue aspirin 325 mg daily 8. would consult psychiatry for behavior issues 9. need home health evaluation for safety issues or 23/04 supervision I have seen and discussed above patient with Dr Moe Kendall, neurology I have seen this man reviewed hnis imaging and eeg and his history whcih nfortunately from him is less than reliable due to dementia Behavior has been worsening and he has worsening renal function so meds may not be clearing and frankly if the diagnosis of a vascular dementia is correct then there is little role for aricept of namenda and agree with stopping for now and revisiting issues in the clinic post discharge exam nonfocal ct shows no significant post traumatic issues and eeg normal so would suggest that meds be stopped and psychiatry advise re behavioral control measures Moe Galvan Md ( discussed and reviewed wit Glendy Paulson )
[2016-12-18 16:03] VITALS: BP 113/66; PULSE 70; TEMP 36.7; O2SAT 97
[2016-12-18 16:15] VITALS: O2SAT 97
--- NOTE | 2016-12-18 18:39 | ELECTROENCEPHALOGRAPH REPORT ---
CLINICAL DIAGNOSES: Syncope with incontinence, question seizure. ELECTROENCEPHALOGRAM DIAGNOSIS: Essentially normal during wakefulness. DESCRIPTION OF TRACING: This EEG was done as a bedside recording and was of good technical quality with few or no muscle movement artifacts. Simultaneous video analysis of patient movement and behavior was recorded. Photic stimulation is the only stimulus parameter utilized. Drowsiness and light sleep were not recorded. Under these conditions, there is evidence for normal appearing background rhythm in the alpha range of up to 10 Hz of maximum frequency and 30 microvolts of maximum amplitude. This is maximum posterior head regions bilaterally symmetrical. Polymorphic mid frequency theta activity is seen over all head regions without focal or regional predominance. Anterior head region maximum bilaterally symmetrical low voltage fast activity in the beta range is present. Photic stimulation provoked some modest driving response without a photomyogenic or photoparoxysmal component. At no time during the waking tracing is there evidence for potentially epileptogenic activity in the form of polyspike or spike wave bursts, focal sharp waves or focal spikes. INTERPRETATION: This EEG is essentially normal without evidence for focal or generalized encephalopathy and without evidence for potentially epileptogenic activity. [facility]
[2016-12-18] MEDS ORDERED: DONEPEZIL HCL 10 MG TAB PO SCH (21:00)
[2016-12-18] MEDS ORDERED: SIMVASTATIN 20 MG TAB PO SCH (21:00)
[2016-12-18] MEDS ORDERED: MEMANTINE 5 MG TAB PO SCH (21:00)
[2016-12-18 23:45] VITALS: BP 138/73; PULSE 87; TEMP 37.2; O2SAT 97
[2016-12-19] MEDS: HEPARIN SOD 5000 UNIT/0.5 ML CARP SQ SCH ×2 (05:44→14:22)
[2016-12-19 06:36] LABS: BASO % 0.2 %; BASO ABS # 0.02 K/uL (0-0.2); COMPLETE YES; EOS % 0.9 %; HEMATOCRIT 32.5 % (42-52); IG% 0.1 %; LYMPH % 27.7 %; LYMPH ABS # 2.44 K/uL (1.2-3.4); MEAN CELL VOLUME 83.5 fL (80-100); MEAN CORPUSCULAR HGB CONC 32.3 g/dl (32-36); MEAN PLATELET VOLUME 9.8 fL (7.4-10.4); MONO % 5.7 %; NEUT % 65.4 %; PLATELET COUNT 295 K/uL (130-400); RED BLOOD COUNT 3.89 M/uL (4.7-6.1); WHITE BLOOD COUNT 8.82 K/uL (4.8-10.8)
[2016-12-19 07:05] LABS: BUN/CREATININE RATIO 19.7 (10-20); CREATININE 1.1 mg/dl (0.60-1.40); POTASSIUM 4.5 mmol/L (3.5-5.1)
[2016-12-19 07:33] VITALS: BP 113/69; PULSE 66; TEMP 36.9; O2SAT 95
[2016-12-19] MEDS: ALLOPURINOL 300 MG TAB PO SCH (09:31)
[2016-12-19] MEDS: ASPIRIN 325 MG ECTAB PO SCH (09:31)
--- NOTE | 2016-12-19 13:03 | Psychiatric Consultation ---
Consultation Identifying Data 76-year-old male with mixed vascular and Alzheimer's type dementia who is admitted to the hospitalist service after a fall. Psychiatry was consulted for behavioral disturbances due to dementia. Chief Complaint "Good, ready to go home". History of Present Illness The patient was admitted to the hospital 2 days ago after he presented to the emergency room status post fall. He has a history of Alzheimer's and vascular dementia, CVA, hypertension, and hyperlipidemia, and resides at home with his . Daughter and state that at baseline, he has short-term memory loss, is repetitive, and disoriented. His reports that at home, he will "fly off the handle" unpredictably, becoming angry and calling names. This has been going on for a couple of months. He is ultimately able to calm down, and then does not remember his behavior. On the day of presentation, he was at his daughter's house, complained of dizziness, and was later found on the floor and had been incontinent of stool. Family reported that he had fallen 4 times in the past 2 days. He had been seen in the emergency room the day prior for a headache. On admission, he was also noted to have acute kidney injury, anemia, and hypertension. Neurology was consulted, saw the patient yesterday, and stopped Namenda and Aricept. He had a head CT and an EEG which were normal. Since admission, the patient has been calm and cooperative, has been taking medications, and cooperating with care. On my assessment, the patient is seated in the chair by his bed having just eaten his lunch. He says he doesn't know why he is here in the hospital, and denies having any medical problems, although he admits he takes multiple medications, which he says his manages for him. He does not know the names of any of his medications or what they are for. He denies symptoms of depression, anxiety, and psychosis. Past Psychiatric History No psychiatric history. 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 Alcohol Use Alcohol Use In Past 12 Months: No ("haven't drank beer for years, don't like that shit.") Substance History The patient denies ever abusing recreational drugs. Personal History Born in: [place] Work History: retired, used to work at a bar Relationship History: Children: 1 adult son per patient, also has daughters per medical record. Additional Comments: Lives with in [place] Review of Systems 10 systems were reviewed, all are negative except as stated above. Examination Vital Signs Vital Signs Past 12 Hours Date Time Temp Pulse Resp B/P Pulse Ox O2 Delivery O2 Flow Rate FiO2 12/19/16 08:45 Room Air 12/19/16 07:33 36.9 66 16 113/69 95 Room Air Laboratory Results Last 24 Hours Test 12/19/16 06:10 White Blood Count 8.82 K/uL Red Blood Count 3.89 M/uL Hemoglobin 10.5 g/dL Hematocrit 32.5 % Mean Corpuscular Volume 83.5 fL Mean Corpuscular Hemoglobin 27.0 pg Mean Corpuscular Hemoglobin Concent 32.3 g/dl Platelet Count 295 K/uL Mean Platelet Volume 9.8 fL Neutrophils (%) (Auto) 65.4 % Lymphocytes (%) (Auto) 27.7 % Monocytes (%) (Auto) 5.7 % Eosinophils (%) (Auto) 0.9 % Basophils (%) (Auto) 0.2 % Neutrophils # (Auto) 5.77 K/uL Lymphocytes # (Auto) 2.44 K/uL Monocytes # (Auto) 0.50 K/uL Eosinophils # (Auto) 0.08 K/uL Basophils # (Auto) 0.02 K/uL RDW Standard Deviation 43.3 fL RDW Coefficient of Variation 14.1 % Immature Granulocyte % (Auto) 0.1 % Immature Granulocyte # (Auto) 0.01 K/uL Sodium Level 140 mmol/L Potassium Level 4.5 mmol/L Chloride Level 107 mmol/L Carbon Dioxide Level 26 mmol/L Anion Gap 7.0 mmol/L Blood Urea Nitrogen 22 mg/dl Creatinine 1.10 mg/dl Est Creatinine Clear Calc Drug Dose 44.3 ml/min Estimated GFR () 76.2 Estimated GFR (Non- 65.8 BUN/Creatinine Ratio 19.7 Random Glucose 95 mg/dl Calcium Level 9.0 mg/dl Iron Level 55 mcg/dl Total Iron Binding Capacity 327 mcg/dl Transferrin 254 mg/dl Transferrin % Saturation 15 % Folate 10.07 ng/mL Mental Examination During interview pt is: cooperative, other (limited historian. Alert, but oriented only to himself in the hospital. He states the year is "Sunday", day is "I don't keep track," and the season is summer.) Appearance: other (dressed in a hospital gown, wearing a necklace with a large wooden cross and beads. Poor dentition, malodorous.) Eye contact is: good Motor behavior is: no abnormal motor movements Speech: normal in rate, rhythm & volume Affect: euthymic Mood is: other ("fine") Thought process: goal directed, other (at times answers with unrelated statements) Thought content: reality based without delusions Suicidal thought are: denied Homicidal thoughts are: denied Hallucinations: denies auditory, denies visual Cognition: other (memory is impaired) Insight: impaired Judgement: impaired Impression / Recommendations Recommendations (1) Mixed Alzheimer's and vascular dementia Patient with diagnosed dementia followed by neurology, multiple recent medication changes during this admission as above. Has had periods of agitation at home, but has been calm and cooperative here. There is no concurrent mental illness, and episodes described by are most consistent with dementia diagnosis. Would not recommend adding additional medications at this time until we see how the changes made by neurology affect his symptoms. He can follow up with his outpatient neurologist for ongoing treatment of dementia. Thank you for allowing us to participate in the care of this patient.
--- NOTE | 2016-12-19 14:47 | Progress Note ---
Medicine Progress Note Date & Time of Visit: Dec 19, 2016 at 14:38. Subjective patient seen sitting up in bed pleasant, cooperative denies dizziness, headache, nausea, chest pain, dyspnea, palpitations denies other symptoms states he is ready for discharge today Objective Last 8 Hrs Date Time Temp Pulse Resp B/P Pulse Ox O2 Delivery O2 Flow Rate FiO2 12/19/16 08:45 Room Air 12/19/16 07:33 36.9 66 16 113/69 95 Room Air Physical Exam: General- oriented x 2, not in distress, speaks in sentences with no effort Neck- no JVD Lungs- clear breath sounds bilaterally, no rales/wheezes Heart- normal rate, regular rhythm; no murmurs Abdomen- normal bowel sounds, soft, nontender Extremities- no pretibial edema, no calf tenderness Neuro- alert, oriented x 2; no gross focal neuro deficits Skin- warm & dry Laboratory Results: Last 24 Hours Test 12/19/16 06:10 White Blood Count 8.82 K/uL Red Blood Count 3.89 M/uL Hemoglobin 10.5 g/dL Hematocrit 32.5 % Mean Corpuscular Volume 83.5 fL Mean Corpuscular Hemoglobin 27.0 pg Mean Corpuscular Hemoglobin Concent 32.3 g/dl Platelet Count 295 K/uL Mean Platelet Volume 9.8 fL Neutrophils (%) (Auto) 65.4 % Lymphocytes (%) (Auto) 27.7 % Monocytes (%) (Auto) 5.7 % Eosinophils (%) (Auto) 0.9 % Basophils (%) (Auto) 0.2 % Neutrophils # (Auto) 5.77 K/uL Lymphocytes # (Auto) 2.44 K/uL Monocytes # (Auto) 0.50 K/uL Eosinophils # (Auto) 0.08 K/uL Basophils # (Auto) 0.02 K/uL RDW Standard Deviation 43.3 fL RDW Coefficient of Variation 14.1 % Immature Granulocyte % (Auto) 0.1 % Immature Granulocyte # (Auto) 0.01 K/uL Sodium Level 140 mmol/L Potassium Level 4.5 mmol/L Chloride Level 107 mmol/L Carbon Dioxide Level 26 mmol/L Anion Gap 7.0 mmol/L Blood Urea Nitrogen 22 mg/dl Creatinine 1.10 mg/dl Est Creatinine Clear Calc Drug Dose 44.3 ml/min Estimated GFR () 76.2 Estimated GFR (Non- 65.8 BUN/Creatinine Ratio 19.7 Random Glucose 95 mg/dl Calcium Level 9.0 mg/dl Iron Level 55 mcg/dl Total Iron Binding Capacity 327 mcg/dl Transferrin 254 mg/dl Transferrin % Saturation 15 % Folate 10.07 ng/mL Assessment & Plan 76 male with history of Hypertension, CVA, Dementia - Alzheimer and Vascular presenting with multiple falls. HEADACHE AND MULTIPLE FALLS UNDERLYING DEMENTIA - Alzheimer and Vascular Type CT head 12/16/16- no acute abnormality; + old infarcts and or encephalomalacia involving the cerebellar hemispheres bilaterally. Calcification of the basal ganglia. Mild cerebral atrophy considered to be age-related. CT c-spine 12/16/16- No fractures within the cervical spine. Considerable degenerative change Follows w/ neurology Dr. Malcolm - repeat CT head 12/18/16: no acute findings EEG normal - Falls may be due to Orthostasis, BP borderline in the setting of Dementia, Old Cerebellar Infarct discontinued Amlodipine and Lisinopril Orthostatic VS negative monitor BP - Neurology consulted Dr. Kendall recommend to discontinue Aricept and Namenda ff up with Dr. Kendall in 3-4 weeks ACUTE RENAL FAILURE Creat is 1.9; baseline 1.1 in May 2016 Likely prerenal from dehydration - given IV fluids crea improved to 1.3 - d/c Lisinopril monitor crea in 3-5 days ANEMIA - Baseline ~12 now 10 - no signs of overt GI bleed - Iron level 55 start Iron Supplement further work up as outpatient VASCULAR DEMENTIA Continue aspirin and statin ALZHEIMER'S DEMENTIA per Neurology, discontinue Aricept and Namenda at this time due to hallucinations/ behavioral issues Psych consulted, no additional medications at this time ff up with Neuro in 3-4 weeks DYSLIPIDEMIA Continue Simvastatin DVT PROPHYLAXIS Heparin SQ given DISPOSITION d/c to [facility] ff up with PCP in [address] Kendall in 3-4 weeks Current Inpatient Medications: Current Inpatient Medications Medications (Trade) Dose Ordered Sig/Alvin Route Start Time Stop Time Status Last Admin Dose Admin Heparin Sodium (Porcine) (Heparin Sq 5000 Unit/0.5ml) 5,000 unit Q8 SQ 12/17/16 22:00 01/16/17 20:59 12/19/16 14:22 5,000 UNIT Acetaminophen (Tylenol Tab) 650 mg Q4H PRN PO 12/17/16 21:00 01/16/17 20:59 Ondansetron HCl (Zofran Inj) 4 mg Q6H PRN IV 12/17/16 21:00 01/16/17 20:59 Miscellaneous (Iv Fluids Completed) 1 ea PRN PRN N/A 12/17/16 21:15 12/17/17 21:14 Allopurinol (Zyloprim Tab) 300 mg DAILY PO 12/18/16 09:00 01/17/17 08:59 12/19/16 09:31 300 MG Aspirin (Ecotrin Tab) 325 mg DAILY PO 12/18/16 09:00 01/17/17 08:59 12/19/16 09:31 325 MG Simvastatin (Zocor Tab) 20 mg QPM PO 12/18/16 21:00 01/17/17 20:59 12/18/16 20:37 20 MG
--- NOTE | 2016-12-19 14:56 | Discharge Instructions ---
Discharge Instructions Date of Service Dec 19, 2016. Admission Reason for Admission: FALL Discharge Discharge Diagnosis / Problem: MULTIPLE FALLS, DEMENTIA Discharge Goals Goal(s): Diagnostic testing, Therapeutic intervention Activity Recommendations Activity Level: Assistance Required Therapies: Physical Therapy, Occupational Therapy FALL PRECAUTIONS PLEASE . Additional Information Patient informed of condition: Yes Advance Directives: No (UNKNOWN) DNR: No (PATIENT IS FULL CODE) Level of Care: Acute Rehab Communicable Disease: No Prognosis: Stable Instructions / Follow-Up Instructions / Follow-Up FALL PRECAUTIONS PLEASE. MONITOR BP. (RE: AMLODIPINE AND LISINOPRIL DISCONTINUED FOR SUSPECTED ORTHOSTASIS). REPEAT CBC AND PRP IN 3-5 DAYS (RE: ANEMIA, ACUTE RENAL FAILURE). ARICEPT AND NAMENDA DISCONTINUED. FOLLOW UP WITH PRIMARY CARE PHYSICIAN DR. CULVER 1 WEEK AFTER DISCHARGE FROM REHAB. FOLLOW UP WITH NEUROLOGIST DR. JASON Hunt 3-4 WEEKS. PLEASE REFER TO ACCOMPANYING DISCHARGE SUMMARY FOR FURTHER DETAILS. Current Hospital Diet Patient's current hospital diet: AHA Diet (Heart Healthy) Discharge Diet Recommended Diet: AHA Diet (Heart Healthy) Procedures Procedures Performed: CT HEAD Pending Studies Studies pending at discharge: yes List of pending studies: REPEAT CBC AND PRP. Physician Orders On Transfer Special Precautions: FALL PRECAUTIONS PLEASE. MONITOR BP. (RE: AMLODIPINE AND LISINOPRIL DISCONTINUED FOR SUSPECTED ORTHOSTASIS). REPEAT CBC AND PRP IN 3-5 DAYS (RE: ANEMIA, ACUTE RENAL FAILURE). ARICEPT AND NAMENDA DISCONTINUED. FOLLOW UP WITH PRIMARY CARE PHYSICIAN DR. CULVER 1 WEEK AFTER DISCHARGE FROM REHAB. FOLLOW UP WITH NEUROLOGIST DR. JASON Hunt 3-4 WEEKS. PLEASE REFER TO ACCOMPANYING DISCHARGE SUMMARY FOR FURTHER DETAILS. Medical Emergencies . Who to Call and When: Medical Emergencies: If at any time you feel your situation is an emergency, please call 911 immediately. . Non-Emergent Contact Non-Emergency issues call your: Primary Care Provider . Past History Medical & Surgical History: (1) Hypertension Nos (2) Colon cancer (3) Prostate cancer (4) Hyperlipemia (5) Dizziness (6) Syncope (7) Fall (8) Weakness (9) Chest pain (10) Hypotension (11) Gout (12) Frequent falls (13) Dyslipidemia (14) BPH (benign prostatic hypertrophy) (15) Hx of sinus bradycardia (16) History of CVA (cerebrovascular accident) (17) Mixed Alzheimer's and vascular dementia (18) H/O colonoscopy (19) S/p prostate brachytherapy (20) S/P partial colectomy (21) History of surgery on arm . "Provider Documentation" section prepared by Basim Moran. Core Measure Problem Core Measures: None
--- NOTE | 2016-12-19 14:59 | Discharge Summary ---
Discharge Summary Date of Service Dec 19, 2016. Discharge Summary Admission Date: Dec 17, 2016 at 20:44 Discharge Date: Dec 19, 2016 Discharge Disposition: Rehab Principal Diagnosis: HEADACHE AND MULTIPLE FALLS UNDERLYING DEMENTIA - Alzheimer and Vascular Type Secondary Diagnoses/Problems: ACUTE RENAL FAILURE ANEMIA VASCULAR DEMENTIA ALZHEIMER'S DEMENTIA DYSLIPIDEMIA Procedures: HEAD CT NONCONTRAST CT DOSE: 601.98 mGy.cm HISTORY: Trauma. Mental status change. fall with head trauma question shd TECHNIQUE: Multiaxial CT images of the head were performed without the use of intravenous contrast. Comparison: 12/16/2016 Findings: The paranasal sinuses and mastoid air cells are clear. Stable scattered encephalomalacia of the cerebellar hemispheres bilaterally. Mild atrophy unchanged. Mild chronic small vessel change also stable. No evidence for new or interval process. No change in the prior exam. Impression: Chronic and age-related change. No acute intracranial abnormality. No change from the prior study. Consultations: NEUROLOGIST DR. GOMEZ Pending Studies/Follow-Up: FALL PRECAUTIONS PLEASE. MONITOR BP. (RE: AMLODIPINE AND LISINOPRIL DISCONTINUED FOR SUSPECTED ORTHOSTASIS). REPEAT CBC AND PRP IN 3-5 DAYS (RE: ANEMIA hg 10, ACUTE RENAL FAILURE crea 1.1). ARICEPT AND NAMENDA DISCONTINUED. FOLLOW UP WITH PRIMARY CARE PHYSICIAN DR. CULVER 1 WEEK AFTER DISCHARGE FROM REHAB. FOLLOW UP WITH NEUROLOGIST DR. GOMEZ N 3-4 WEEKS. PLEASE REFER TO HOSPITAL COURSE BELOW FOR FURTHER DETAILS. Medication Reconciliation Continued Medications: Allopurinol (Zyloprim) 300 Mg Tab 300 MG PO DAILY, TAB Aspirin (Aspirin) 325 Mg Tab 1 TAB PO DAILY Simvastatin (Zocor) 20 Mg Tab 20 MG PO QPM, TAB Discontinued Medications: Amlodipine Besylate (Norvasc) 5 Mg Tab 5 MG PO DAILY, TAB Donepezil Hydrochloride (Aricept) 10 Mg Tab 10 MG PO HS, TAB Lisinopril (Prinivil) 20 Mg Tab 20 MG PO BID, TAB Memantine (Namenda) 10 Mg Tab 10 MG PO BID, TAB Admission Information HPI (per Admitting provider): This is a 76 year old male with PMH of mixed Alzheimer's and vascular dementia, hx CVA, HTN, HL, and other problems listed below who presents to the ED s/p fall. History not reliable from patient due to dementia. Daughter at bedside states mental status is at baseline with short term memory loss, repetitiveness , disorientation to date. Today he was at his other daughter's house, was c/o dizziness, was seen ambulating, then at some point later was found on the floor and with incontinence of stool. Unknown if there was head trauma or LOC. Daughter states he fell total of 4x in past 2 days but details are unknown to her. She was told he fell on ice and in the bathroom but unclear the mechanism of fall. He is supposed to use a cane but ambulates unassisted. Pt was c/o occipital head throbbing earlier in the ER but patient denies headache or dizziness currently. Patient denies recent fever, URI symptoms, focal neuro symptoms, tinnitus, hearing loss, chest pain, SOB, N/V, abdominal pain, any other pain. Daughter states his stool was loose today. No known bleeding per the daughter. Patient lives with his who is not present currently. Unclear how well he has been eating. Daughter does not know the details of his prior CVA. Pt was brought to ER yesterday by other daughter for TUCKER and had CT head showing no acute findings. The family present at that time reported that 2 nights ago patient fell as a result of dizziness after standing up from the toilet. Physical Exam (per Admitting): General Appearance: + thin, + pertinent finding (alert pleasantly confused 76 year old male, daughter at bedside) Head: normocephalic, atraumatic Eyes: normal inspection, PERRL, EOMI ENT: hearing grossly normal, pharynx normal Neck: supple, trachea midline Respiratory/Chest: lungs clear, normal breath sounds, no respiratory distress Cardiovascular: regular rate, rhythm, no murmur Abdomen/GI: normal bowel sounds, non tender, soft Extremities/Musculoskelatal: no calf tenderness, no pedal edema Neurologic/Psych: anode adjuster II-XII nml as tested, no motor/sensory deficits, alert , normal mood/affect, + pertinent finding (oriented to person and place only. poor short term memory. ) Skin: normal color, warm/dry, + pertinent finding (poor skin turgor) Hospital Course 76 male with history of Hypertension, CVA, Dementia - Alzheimer and Vascular presenting with multiple falls. HEADACHE AND MULTIPLE FALLS UNDERLYING DEMENTIA - Alzheimer and Vascular Type CT head 12/16/16- no acute abnormality; + old infarcts and or encephalomalacia involving the cerebellar hemispheres bilaterally. Calcification of the basal ganglia. Mild cerebral atrophy considered to be age-related. CT c-spine 12/16/16- No fractures within the cervical spine. Considerable degenerative change Follows w/ neurology Dr. Malcolm - repeat CT head 12/18/16: no acute findings EEG normal - Falls may be due to Orthostasis, BP borderline in the setting of Dementia, Old Cerebellar Infarct discontinued Amlodipine and Lisinopril Orthostatic VS negative monitor BP - Neurology consulted Dr. Gomez recommend to discontinue Aricept and Namenda ff up with Dr. Gomez in 3-4 weeks ACUTE RENAL FAILURE Creat is 1.9; baseline 1.1 in May 2016 Likely prerenal from dehydration - given IV fluids crea improved to 1.3 - d/c Lisinopril monitor crea in 3-5 days ANEMIA - Baseline ~12 now 10 - no signs of overt GI bleed - Iron level 55 further work up as outpatient VASCULAR DEMENTIA Continue aspirin and statin ALZHEIMER'S DEMENTIA per Neurology, discontinue Aricept and Namenda at this time due to hallucinations/ behavioral issues Psych consulted, no additional medications at this time ff up with Neuro in 3-4 weeks DYSLIPIDEMIA Continue Simvastatin DISPOSITION d/c to [facility] ff up with PCP in 1 week after discharge from Rehab Neurologist Dr. Gomez in 3-4 weeks Total time spent on discharge = 30 minutes This includes examination of the patient, discharge planning, medication reconciliation, and communication with other providers. Discharge Instructions Discharge Instructions Date of Service Dec 19, 2016. Admission Reason for Admission: FALL Discharge Discharge Diagnosis / Problem: MULTIPLE FALLS, DEMENTIA Discharge Goals Goal(s): Diagnostic testing, Therapeutic intervention Activity Recommendations Activity Level: Assistance Required Therapies: Physical Therapy, Occupational Therapy FALL PRECAUTIONS PLEASE . Additional Information Patient informed of condition: Yes Advance Directives: No (UNKNOWN) DNR: No (PATIENT IS FULL CODE) Level of Care: Acute Rehab Communicable Disease: No Prognosis: Stable Instructions / Follow-Up Instructions / Follow-Up FALL PRECAUTIONS PLEASE. MONITOR BP. (RE: AMLODIPINE AND LISINOPRIL DISCONTINUED FOR SUSPECTED ORTHOSTASIS). REPEAT CBC AND PRP IN 3-5 DAYS (RE: ANEMIA, ACUTE RENAL FAILURE). ARICEPT AND NAMENDA DISCONTINUED. FOLLOW UP WITH PRIMARY CARE PHYSICIAN DR. CULVER 1 WEEK AFTER DISCHARGE FROM REHAB. FOLLOW UP WITH NEUROLOGIST DR. JASON Hunt 3-4 WEEKS. PLEASE REFER TO ACCOMPANYING DISCHARGE SUMMARY FOR FURTHER DETAILS. Current Hospital Diet Patient's current hospital diet: AHA Diet (Heart Healthy) Discharge Diet Recommended Diet: AHA Diet (Heart Healthy) Procedures Procedures Performed: CT HEAD Pending Studies Studies pending at discharge: yes List of pending studies: REPEAT CBC AND PRP. Physician Orders On Transfer Special Precautions: FALL PRECAUTIONS PLEASE. MONITOR BP. (RE: AMLODIPINE AND LISINOPRIL DISCONTINUED FOR SUSPECTED ORTHOSTASIS). REPEAT CBC AND PRP IN 3-5 DAYS (RE: ANEMIA, ACUTE RENAL FAILURE). ARICEPT AND NAMENDA DISCONTINUED. FOLLOW UP WITH PRIMARY CARE PHYSICIAN DR. CULVER 1 WEEK AFTER DISCHARGE FROM REHAB. FOLLOW UP WITH NEUROLOGIST DR. JASON Hunt 3-4 WEEKS. PLEASE REFER TO ACCOMPANYING DISCHARGE SUMMARY FOR FURTHER DETAILS. Medical Emergencies . Who to Call and When: Medical Emergencies: If at any time you feel your situation is an emergency, please call 911 immediately. . Non-Emergent Contact Non-Emergency issues call your: Primary Care Provider . Past History Medical & Surgical History: (1) Hypertension Nos (2) Colon cancer (3) Prostate cancer (4) Hyperlipemia (5) Dizziness (6) Syncope (7) Fall (8) Weakness (9) Chest pain (10) Hypotension (11) Gout (12) Frequent falls (13) Dyslipidemia (14) BPH (benign prostatic hypertrophy) (15) Hx of sinus bradycardia (16) History of CVA (cerebrovascular accident) (17) Mixed Alzheimer's and vascular dementia (18) H/O colonoscopy (19) S/p prostate brachytherapy (20) S/P partial colectomy (21) History of surgery on arm . "Provider Documentation" section prepared by Basim Moran. Core Measure Problem Core Measures: None
[2016-12-19 15:28] VITALS: BP 126/69; PULSE 67; TEMP 36.8; O2SAT 98
[2016-12-19 15:48] VITALS: BP 126/69; PULSE 67; TEMP 36.8; O2SAT 98
== END 2016-12-19 16:10 ==
LOC: ENRESERVDT → ENRESERVTM → EDBD 15:35 → C.EDB 15:36 → C.MSN 20:44
PROVIDERS: ADMIT Internal Medicine; ATTEND Internal Medicine
DX: R51 Headache (principal); R53.1 Weakness; W19.XXXA Unspecified fall, initial encounter; N40.0 Benign prostatic hyperplasia without lower urinary tract symptoms; R42 Dizziness and giddiness; R07.9 Chest pain, unspecified; E78.5 Hyperlipidemia, unspecified; I10 Essential (primary) hypertension; G30.9 Alzheimer's disease, unspecified; F02.81 Dementia in other diseases classified elsewhere, unspecified severity, with behavioral disturbance; I95.9 Hypotension, unspecified; M10.9 Gout, unspecified; N17.9 Acute kidney failure, unspecified; F01.50 Vascular dementia, unspecified severity, without behavioral disturbance, psychotic disturbance, mood disturbance, and anxiety; Z88.0 Allergy status to penicillin; Z79.82 Long term (current) use of aspirin; Z85.46 Personal history of malignant neoplasm of prostate; Z90.49 Acquired absence of other specified parts of digestive tract; Z87.891 Personal history of nicotine dependence; Z86.73 Personal history of transient ischemic attack (TIA), and cerebral infarction without residual deficits; Z85.038 Personal history of other malignant neoplasm of large intestine; Z82.49 Family history of ischemic heart disease and other diseases of the circulatory system

== ENCOUNTER → 2017-08-16 | Outpatient (CLI) | payer OTHER ==
[~2017-08-16] MED LIST changes: -AMLO5TAB2 PO; -ASPI325T39 PO; +ASPI325T45 PO; +GADAVIST IV PRN; -LISI20TA3 PO
--- NOTE | 2017-08-16 16:57 | DIAGNOSTIC IMAGING REPORT ---
PELVIS MRI WITH AND WITHOUT INTRAVENOUS CONTRAST HISTORY: Rectal mass. TECHNIQUE: Multiplanar multisequence MRI of the pelvis was performed both before and after the intravenous administration of contrast. COMPARISON STUDY: None. FINDINGS: Multiple brachytherapy seeds are noted at the prostate gland. This obscures visualization of the prostate gland and a portion of the anterior wall of the rectum. There is diffuse enhancement and mild regular thickening involving the distal 5 cm of the rectum. This likely corresponds the patient's known rectal mass. This measures up to 1.3 cm in thickness along the right rectal wall. This does not appear to extend beyond the rectal wall into the perirectal fat. There are a few mildly enlarged presacral/perirectal lymph nodes. These are best seen on axial images 16 through 31 of 120 of the axial postcontrast sequence. Dominant lymph node measures 8 mm. This is concerning for metastatic involvement. No suspicious osseous lesions identified. IMPRESSION: 1. Irregular thickening and enhancement of the distal 5 cm of the rectum consistent with the patient's known history of a rectal mass. 2. Mildly enlarged perirectal/presacral lymph nodes which likely represent metastatic component. Electronically signed by: Doe Quick M.D. 08/16/2017 7:01 PM Dictated Date/Time: 08/16/2017 4:47 PM
== END | disposition home or self-care (01) ==
LOC: C.MRI 15:08
PROVIDERS: ATTEND Internal Medicine Gastroenterology
DX: C20 Malignant neoplasm of rectum (principal)

== ENCOUNTER → 2017-11-28 | Outpatient (CLI) | payer OTHER ==
[~2017-11-28] MED LIST changes: -ALLO300T2 PO; -ASPI325T45 PO; +CAPE150T PO; +LOPE-5 PO; -SIMV20TA5 PO; +XLD/500 PO
--- NOTE | 2017-11-28 09:32 | DIAGNOSTIC IMAGING REPORT ---
PELVIC COMBO CLINICAL HISTORY: 77 years-old Male presenting with RECTAL CA, history of sigmoidectomy in 2008, surveillance colonoscopy in July revealing rectal mass biopsy on 07/16/2017 to be invasive adenocarcinoma, US on 08/08/2017 stage [id number], nonsignificant central anterior rectal wall mass measuring 4 cm in length with possible invasion of the prostate and internal anal slinker, PET/CT from August negative for lymphadenopathy other than mild FDG avidity within a left external iliac lymph node and 5 mm right upper lobe nodule below the level of resolution. TECHNIQUE: Multisequence, multiplanar MR imaging of the pelvis was performed before and after the administration of intravenous contrast. IV contrast: 5 mL of Gadavist. COMPARISON: 08/16/2017. FINDINGS: Localizer images: Unremarkable. Bladder: Normal. Pelvic organs: Brachytherapy seeds noted in the prostate with regional susceptibility artifact somewhat limiting evaluation of the anterior rectum. Susceptibility artifact along the anterior rectum appears to traverse the rectal prostatic region and raises concern for fistulization between the rectum and prostate (series 14 image 45) disease. Bowel: No discrete rectal mass is now apparent. Extensive enhancement of the irregular appearing and mildly thick-walled lower rectum and anorectal junction. An enhancing tract appears to extend from the lower rectum to the posterior apex of the prostate (series 14 image 45). No enhancing soft tissue nodularity in the mesorectal fat. Peritoneal cavity: No free fluid or intraperitoneal gas. Lymph nodes: No enlarged lymph nodes in the pelvis. Vasculature: Aorta and IVC patent and normal in caliber. Abdominal wall: Normal. Musculoskeletal: Hyperintensity along the cortical aspects of the iliacus bone marrow is also more homogeneously fatty in the pelvis, likely also post radiation change. Muscles bilaterally likely post radiation change. Interval development of a new T2 hyperintense enhancing in the left superior acetabulum (series 9 image 13). This was not immediately apparent on the prior MR from August. A second lesion is also evident in the right femoral head neck junction, though this is more cystic-appearing and was present on the prior exam and was photopenic on PET. IMPRESSION: 1. 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 No discrete measurable mass is apparent though irregular enhancement and wall thickening of the lower rectum at the anterolateral junction is noted. This could represent posttreatment change. 2. No lymphadenopathy. 3. Interval development of an enhancing, suspicious lesion in the superior acetabulum. This raises concern for osseous metastatic disease. This was not apparent on prior PET/CT from 08/22/2017 or the prior MR. Electronically signed by: Qasim Garcia M.D. 11/28/2017 9:31 AM Dictated Date/Time: 11/28/2017 9:14 AM
== END | disposition home or self-care (01) ==
LOC: C.MRI 08:14
PROVIDERS: ATTEND Internal Medicine Hematology
DX: C20 Malignant neoplasm of rectum (principal); Z98.890 Other specified postprocedural states; M89.9 Disorder of bone, unspecified

== ENCOUNTER → 2017-12-03 | Outpatient (CLI) | payer OTHER ==
[~2017-12-03] MED LIST changes: -GADAVIST IV PRN
--- NOTE | 2017-12-03 18:36 | DIAGNOSTIC IMAGING REPORT ---
BONE SCAN WHOLE BODY HISTORY: Metastatic disease RECTAL CA, BONE LESION RADIOTRACER: 26.65 mCi Tc-99m MDP STUDY/IMAGES: Planar anterior and posterior whole body imaging was performed 3 hours following the intravenous administration of radiotracer. COMPARISON: MRI pelvis 11/28/2017 FINDINGS: Increased activity involving several ribs bilaterally. This includes a right second and fourth ribs as well as the sixth left second fifth sixth and possibly seventh rib. No significant increase in acetabular activity. Linear increase in the lower sternal region. All remaining components of the axial and appendicular skeleton are unremarkable. IMPRESSION: Findings consistent with diffuse metastatic disease involving the ribs bilaterally as well as lower sternum. No abnormal activity characteristics of the acetabular regions. The above report was generated using voice recognition software. It may contain grammatical, syntax or spelling errors. Electronically signed by: Mohit Gao M.D. 12/03/2017 6:34 PM Dictated Date/Time: 12/03/2017 6:32 PM
== END | disposition home or self-care (01) ==
LOC: C.NUCL 14:13
PROVIDERS: ATTEND Internal Medicine Hematology
DX: C20 Malignant neoplasm of rectum (principal); M89.9 Disorder of bone, unspecified

== ENCOUNTER → 2017-12-04 | Outpatient (CLI) | payer OTHER ==
[2017-12-04 13:19] VITALS: BP 141/83; PULSE 89; TEMP 37.1; O2SAT 95
--- NOTE | 2017-12-04 16:04 | Radiation Oncology Follow-Up ---
Radiation Oncology Follow-Up Date of Visit Dec 04, 2017. Reason For Visit One-month follow-up Radiation Completion Date 11/01/17 Diagnosis (1) Rectal cancer Status: Acute Onset Date: 07/16/2017 Histology Subtype: Adenocarcinoma Permanent Comment: Intramucosal adenocarcinoma of the colon 11/10/2008 Status post colorectal resection 12/21/2008 no residual disease Status post colonoscopy revealing a rectal mass biopsied 07/16/2017 Invasive adenocarcinoma Status post lower EUS 08/08/2017 Stage uT4 [id number] Plan for neoadjuvant radiation and chemotherapy Chemotherapy comprised of Xeloda Status post completion of combined radiation and chemotherapy 11/01/2017. He received 5040 cGy. 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 A total of 94 seeds were inserted into the prostate. One seed was noted to pass into the bladder and was cystoscopically retrieved at the end of the case. The final seed count was therefore 93. Since that time the patient has done well and his most recent prostate-specific antigen drawn on 05/23/2017 was 0.03. The patient underwent a screening colonoscopy on 11/10/2008. This revealed some skin thickening around the anus. A pedunculated polyp was found at 20 cm proximal to the anus measuring 1.5 cm. This was removed. A sessile polyp was found at 15 cm proximally to the anus measuring 0.5 cm which was removed. Radiation proctitis was appreciated quality of the bowel prep was fair with a large amount of liquid stool coding cunningham of the colon. The polyp in the colon 20 cm from the anus revealed at least intramucosal adenocarcinoma/ adenocarcinoma in situ arising in a tubular adenoma. The margins could not be evaluated due to the orientation of the specimen. Recommendations was for clinical correlation and complete removal of the lesion to evaluate depth of invasion. The polyp removed from the colon at 15 cm revealed a tubular adenoma. Patient was seen by Dr. Collado who performed an anterior resection of a rectosigmoid cancer, stable anastomosis and completion proctoscopy. The pathology from the colon resection revealed no residual adenocarcinoma or adenoma identified. A total of 9 lymph nodes were identified and all 9 were benign. Case: 3-S. Patient underwent a reevaluation endoscopy on 2008. This identified the anastomosis on the left side of the colon. A large hemorrhoids were noted on retroflexion with the remainder of the colon unremarkable. The patient wanted to have a repeat colonoscopy for routine screening on 07/16/2017. A digital rectal exam revealed hemorrhoids and a palpable mass noted on rectal exam. Immediately proximal to the anal verge there was a large excavated ulcer involving almost 1/4 of the rectum. The edges of the ulcer were "rolled up" suggestive of malignancy. This mass appeared to extend into the anal canal. The edges of the mass were biopsied. An otherwise unremarkable and an anastomosis was appreciated sigmoid colon. A 5 mm flat polyp was noted at the hepatic flexure with the remainder the exam unremarkable. The polyp from the hepatic flexure was removed and consistent with a tubular adenoma. The rectal mass was biopsied and revealed an invasive adenocarcinoma well differentiated. The depth of invasion could not be determined. Accession #: [id number]. Patient went on to have a lower EUS on 08/08/2017. This confirmed an ulcerated nonobstructing large mass found in the rectum. The mass was non- circumferential and measured 4 cm in length. Its diameter measured 3 cm. No bleeding was appreciated. The digital rectal findings included the palpable rectal mass. Endosonographic findings revealed no lymph nodes seen in the perirectal region and in the left iliac region. A hypoechoic mass was found in the rectum. The mass was non-circumferential and located predominantly at the anterior rectal wall. The endosonographic borders were irregular. The mass measured 4.0 x 2.2 x 1.4 cm. There was sonographic evidence suggesting invasion into the prostate (uT4) and the internal anal sphincter. There was no sonographic evidence of invasion into the seminal vesicles. The final ultrasound stage was therefore uT4 uN0. The patient underwent a CT scan of the chest abdomen and pelvis on 07/24/2017. This showed an asymmetric soft tissue thickening along the anterior rectum, possibly representing the patient's known rectal cancer. Associated presacral adenopathy suggestive of local lymphatic spread. It was suggested consideration of a MRI to better define extent of the disease. There were innumerable hypodensities within the liver parenchyma, incompletely characterized that could represent Von Alise Bird complexes, cysts or metastatic disease. Additional imaging was suggested. Incompletely characterized hypodensity within the pancreatic head. The patient was subsequently seen by Dr. Arevalo a colorectal surgeon at [facility]. He agreed with the suggestion of additional staging procedures to better evaluate the liver and the pelvis. He felt that the patient did not have metastatic disease he would recommend consideration of neoadjuvant chemoradiation followed by surgical resection. If he did have metastatic disease he suggested palliative chemotherapy followed by restaging. On 2016 the patient underwent a MRI of the pelvis with and without contrast. This confirmed irregular thickening and enhancement of the distal 5 cm of the rectum consistent with the patient's known history of a rectal mass. There was mildly enlarged perirectal/presacral lymph nodes likely representing metastatic component. A PET/CT scan was performed on 08/22/2017. This showed intensely metabolically active mass involving the rectum and anal canal consistent with the patient's biopsy-proven malignancy. No metabolically active perirectal or abdominal lymphadenopathy was appreciated. A low-grade metabolic activity was noted within a small solitary left external iliac chain lymph node. A 5 mm right upper lobe pulmonary nodule is below the resolution of PET with additional follow-up CT of the chest recommended in 6 months. Metabolic activity noted throughout the liver parenchyma and spleen was homogeneous. Brachytherapy seeds were again noted within the prostate gland. No focal metabolic activity localized to the bony structures. Patient was seen by Dr. presley miller. He agreed with the recommendation of consideration of preoperative chemoradiation. The patient was presented at the tumor GI multidisciplinary clinic on 08/30/2017 at [facility]. They discussed with the patient the role of radiation therapy including a discussion of the logistics, potential benefits and potential side effects both short-term and long-term. The patient wished to have his radiation closer to home in [place]. The patient was seen by Dr. Nicholas White radiation oncologist. Dr. Salvador discussed the role of neoadjuvant combined chemoradiation consisting of oral Xeloda at 800 mg/m, the final dose recommendation was 1150 mg twice a day Sunday through Sunday during the radiation treatments. We were asked to see the patient to discuss with him the role of radiation as part of his combined modality therapy. He completed radiation therapy 2017. He received 5040 cGy. She was combined with chemotherapy. He took Xeloda twice daily while undergoing radiation therapy. Xeloda was taken on Sunday through Fridays Interim History He had steady improvement of the bowel issues following the completion of the radiation. He had been having frequent loose bowel movements. This has resolved. His does not report any issues with abdominal pain. His appetite is good. His weight is stable. He has been followed closely by Dr. Salvador in medical oncology. Following his completion of treatment and for preoperative evaluation he had a pelvic MRI. This was performed on November. 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 No discrete measurable mass is apparent though irregular enhancement and wall thickening of the lower rectum at the anterior lateral junction is noted. This could represent posttreatment changes. No lymphadenopathy. Interval development of enhancing, suspicious lesion in the superior acetabulum. This raises concern for osseous metastatic disease. This was not apparent on a prior PET/CT from August 22, 2017 or the prior MR. Because of this finding it was sent for a bone scan that was performed on December 03, 2017. These findings are consistent with diffuse metastatic disease involving the ribs bilaterally as well as lower sternum. No abnormal activity characteristics of the acetabulum regions. Dr. Salvador is also recommended lab studies to include a CEA titer and a PSA. He does not have a complaint of urinary difficulty at this time. He did have some issues with frequency and urgency during the radiation. This is since resolved. Allergies Coded Allergies: Penicillins (Verified Allergy, Severe, SICK HIVES, 12/17/16) Home Medications Scheduled Loperamide Hcl (Imodium A-D), 1 TAB PO DIRECTED Review of Systems Gastrointestinal: Symptoms: WNL, Diarrhea GI Comments: Diarrhea off and on - takes imodium PRN Oral: Symptoms: No Problems Respiratory: Symptoms: WNL Urinary: Symptoms: WNL Skin: Symptoms: No Problems Physical Exam Vital Signs Date Time Temp Pulse Resp B/P (MAP) Pulse Ox O2 Delivery O2 Flow Rate FiO2 12/04/17 13:19 37.1 89 16 141/83 95 Fatigue: None General Appearance: no apparent distress Eyes: normal inspection, EOMI ENT: normal ENT inspection, hearing grossly normal Neck: no adenopathy Respiratory/Chest: lungs clear, no respiratory distress, no accessory muscle use Cardiovascular: regular rate, rhythm, no gallop, no murmur Abdomen: non tender, soft, no organomegaly Anal / Rectum: Examination of the perianal region shows resolving hyperpigmentation. There is no rectal bleeding. No rectal discharge. Neurologic/Psychiatric: no motor/sensory deficits, alert, normal mood/affect Skin: warm/dry Pain Management Patient Reports Pain: No Initial Pain Intensity: 0.0 Pain Management Plan He denies pain therefore requires no pain management. Pathology Pathology Results: were reviewed, and pertinent findings noted in HPI Imaging Imaging Studies: were reviewed Imaging Comments Reviewed in the interim history. Assessment & Plan Plan: Continue follow-up with medical oncology. Laboratory studies are planned. He has an appointment with the colorectal surgeon tomorrow. He currently has no complaints of pain in the area of his ribs or sternum. There is no tenderness on examination. I discussed with patient and his that in the presence of metastatic disease radiation can be used for relief of pain. He currently does not have pain in these areas. Follow-up appointment with our office was not given. He may return if he has any questions or concerns are directed by Dr. Salvador in medical oncology. Total Time In Follow-Up I spent 20 minutes speaking to the patient in performing examination. I spent 20 minutes reviewing information in completing this note. Copy To Ubaldo Zuniga M.D. (MEDICAL); Tray Arevalo D.O.; Yves Salvador M.D.
== END | disposition home or self-care (01) ==
LOC: C.ONC 13:13
PROVIDERS: ATTEND Physician Assistant Medical
DX: Z08 Encounter for follow-up examination after completed treatment for malignant neoplasm (principal); Z92.3 Personal history of irradiation; Z85.048 Personal history of other malignant neoplasm of rectum, rectosigmoid junction, and anus

== ENCOUNTER → 2017-12-10 | Outpatient (CLI) | payer OTHER ==
[~2017-12-10] MED LIST changes: -CAPE150T PO; -XLD/500 PO
--- NOTE | 2017-12-10 14:47 | DIAGNOSTIC IMAGING REPORT ---
PET/CT SKULL-THIGH HISTORY: Colorectal carcinoma COLORECTAL CANCER TECHNIQUE: PET/CT was performed from the base of the skull through the pelvis following the intravenous administration of 13.8 mCi of F18-FDG. Non-contrast CT imaging was performed over the same range without breath-hold for attenuation correction of PET images and anatomic correlation, but not for primary interpretation as it is not of standard diagnostic quality. CT DOSE: COMPARISON: 08/22/2017 FINDINGS: HEAD AND NECK: Considerable improvement compared to the prior study. Interval resolution of the suboccipital/superior cervical adenopathy. No significant residual and/or no significant metabolically active residual. CHEST: Focus of increased metabolic activity right anterior hilar region have an SUV characteristics of 4.5 at maximum. Maximum dimension does not exceed 1 cm. Increased metabolic activity of several lower ribs on the right as well as left corresponding with patient's prior bone scan. These appear to relate based on the CT scan findings of healing rib fractures. Increased activity lower sternum may be secondary to a small focus of sclerotic change best seen transaxial image 321.64. ABDOMEN/PELVIS: Small focus of increased metabolic activity medial right hepatic lobe image 373.88. There is no well-defined CT correlate. A solitary metastatic focus is not excluded. Unremarkable activity characteristics of the urinary tracts. Improved rectal activity with a considerable decrease in bulk of a rectal lesion with moderate increase in peripheral metabolic activity. SUVs extend to 4.6. This is immediately posterior to the level of prostate. Moderate bladder wall trabeculation. Focus of increased activity left lateral pelvic sidewall related to a sigmoid diverticulum. No significant metabolically active pelvic sidewall or inguinal maryann pathology. MUSCULOSKELETAL: Increased activity of several ribs. Be secondary to healing rib fractures. Focus of increased activity lower sternum suspect for a metastatic deposit. IMPRESSION: 1. Mixed findings compared to the prior study. 2. Considerable improvement with near complete resolution of the upper cervical adenopathy. 4. Increased activity of multiple mid and lower ribs consistent with healing rib fractures. 5. Sclerotic focus inferior sternum possibly related to a bony metastatic deposit. 6. 1 cm anterior right hilar node showing intense bowel activity characteristics. 7. Improved activity with moderate residual peripheral activity of the rectal wall. 8. Possible 1 cm metastatic focus medial right hepatic lobe. No definite CT correlate. The above report was generated using voice recognition software. It may contain grammatical, syntax or spelling errors. Electronically signed by: Mohit Gao M.D. 12/10/2017 2:46 PM Dictated Date/Time: 12/10/2017 2:25 PM
== END | disposition home or self-care (01) ==
LOC: C.PET 09:46
PROVIDERS: ATTEND Internal Medicine Hematology
DX: C20 Malignant neoplasm of rectum (principal); M89.9 Disorder of bone, unspecified; R59.0 Localized enlarged lymph nodes

== ENCOUNTER 2018-01-11 12:14 | Emergency (ER) | payer OTHER ==
[~2018-01-11] VITALS: Ht 154.9 cm; Wt 61.7 kg
[2018-01-11 12:42] VITALS: TEMP 36.8; Ht 154.9 cm; Wt 61.7 kg
[2018-01-11 12:59] LABS: BASO % 0.1 %; BASO ABS # 0.01 K/uL (0-0.2); EOS % 0.1 %; EOS ABS # 0.01 K/uL (0-0.5); HEMATOCRIT 36.9 % (42-52); HEMOGLOBIN 12.3 g/dL (14.0-18.0); IG# 0.02 K/uL (0.00-0.02); LYMPH % 12.9 %; LYMPH ABS # 0.88 K/uL (1.2-3.4); MEAN CELL VOLUME 87.6 fL (80-100); MEAN CORPUSCULAR HEMOGLOBIN 29.2 pg (25-34); MEAN CORPUSCULAR HGB CONC 33.3 g/dl (32-36); MEAN PLATELET VOLUME 9.1 fL (7.4-10.4); MONO % 7.9 %; MONO ABS # 0.54 K/uL (0.11-0.59); NEUT % 78.7 %; NEUT ABS # 5.34 K/uL (1.4-6.5); PLATELET COUNT 304 K/uL (130-400); RED CELL DISTRIBUTION WIDTH CV 14.7 % (11.5-14.5); RED CELL DISTRIBUTION WIDTH SD 47.1 fL (36.4-46.3)
--- NOTE | 2018-01-11 13:06 | DIAGNOSTIC IMAGING REPORT ---
CHEST ONE VIEW PORTABLE CLINICAL HISTORY: Altered mental status. COMPARISON STUDY: PET/CT December 10, 2017. FINDINGS: Patient is rotated. No pneumothorax or pleural effusion is noted. There is no consolidation or evidence for pulmonary edema. Cardiomediastinal silhouette is unremarkable. 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 IMPRESSION: No acute cardiopulmonary findings. Electronically signed by: Bola Cunningham M.D. 01/11/2018 1:05 PM Dictated Date/Time: 01/11/2018 1:03 PM
[2018-01-11 13:08] LABS: INR 0.9 (0.9-1.1); PTT PATIENT 24.4 SECONDS (21.0-31.0)
[2018-01-11 13:18] LABS: ALBUMIN 3.2 gm/dl (3.4-5.0); ALT/SGPT 17 U/L (12-78); BLOOD UREA NITROGEN 13 mg/dl (7-18); CALCIUM 8.8 mg/dl (8.5-10.1); CARBON DIOXIDE 25 mmol/L (21-32); CREATININE 1.21 mg/dl (0.60-1.40); GLUCOSE 93 mg/dl (70-99); POTASSIUM 4.6 mmol/L (3.5-5.1); SODIUM 137 mmol/L (136-145)
[2018-01-11 13:23] LABS: ALKALINE PHOSPHATASE 150 U/L (45-117); AST/SGOT 22 U/L (15-37); TOTAL PROTEIN 6.9 gm/dl (6.4-8.2)
--- NOTE | 2018-01-11 13:34 | DIAGNOSTIC IMAGING REPORT ---
CT SCAN OF THE BRAIN WITHOUT IV CONTRAST CLINICAL HISTORY: Change in mental status. COMPARISON STUDY: CT of the brain dated 12/18/2016. TECHNIQUE: Unenhanced axial CT scan of the brain is performed from the vertex to the skull base. A dose lowering technique was utilized adhering to the principles of ALARA. The skull base was scanned twice due to motion artifact. CT DOSE: 767.83 mGy.cm FINDINGS: Brain parenchyma: There are age-related involutional changes noting moderate to advanced subcortical and periventricular microangiopathic change. Multiple foci of cerebellar encephalomalacia are again noted and likely represent remote infarcts. There is no hemorrhage, mass effect, or evidence of acute territorial ischemia by CT criteria. Bustos-white matter is preserved. No extra-axial fluid collection is seen. Mineralization is noted in the basal ganglia. Ventricles, sulci, cisterns: Prominent secondary to involutional change. Intracranial vasculature: There is atherosclerotic calcification of the cavernous carotid and vertebral arteries. Calvarium: Unremarkable. Sinuses and mastoids: The visualized paranasal sinuses are clear. The mastoid air cells are well pneumatized. A 2.2 cm calcification is noted in the left nasopharynx, likely representing an osteoma. Orbits: The bony orbits are grossly intact. IMPRESSION: Senescent changes and remote infarcts as above. There is no hemorrhage, mass effect, or evidence of acute territorial ischemia by CT criteria. Electronically signed by: Kalpesh Pool M.D. 01/11/2018 1:32 PM Dictated Date/Time: 01/11/2018 1:28 PM
[2018-01-11 14:08] VITALS: BP 143/88; PULSE 95; O2SAT 95
--- NOTE | 2018-01-11 17:17 | EMERGENCY ROOM VISIT NOTE ---
History Report prepared by Kendell: Erin Wilkerson Under the Supervision of: Dr. Rich Brooks D.O. First contact with patient: 12:36 Chief Complaint: OTHER COMPLAINT History of Present Illness The patient is a 77 year old male who presents to the Emergency Room with complaints of a sudden onset of weakness occurring just prior to arrival. Per , the patient was walking and he started dragging his feet and had a difficult time walking. Patient notes that he was feeling very weak and tired. Per , the patient did not fall or loose consciousness. Per , the patient has a similar episode to this a year ago which was resolves after he ate and drink. She believes his episode a year ago was a result of him having low blood sugar. The patient's blood sugar on arrival was 119. Patient has no other complaints at this time. The patient has a history of Alzheimer's disease. Per , the patient's is at baseline. Pt denies headache, change in vision, fevers, chest pain, shortness of breath, nausea, vomiting, diarrhea, pain with urination, and melena. Source of History: patient, spouse/significant other Onset: just prior to arrival Position: other (generalized) Quality: other (weakness) Timing: other (sudden) Associated Symptoms: + weakness, No LOC, No fevers, No headache, No chest pain, No SOB, No nausea, No vomiting, No urinary symptoms Review of Systems See HPI for pertinent positives & negatives. A total of 10 systems reviewed and were otherwise negative. Past Medical & Surgical Medical Problems: (1) BPH (benign prostatic hypertrophy) (2) Colon cancer (3) Dyslipidemia (4) Gout (5) History of CVA (cerebrovascular accident) (6) Hx of sinus bradycardia (7) Hyperlipemia (8) Hypertension Nos (9) Mixed Alzheimer's and vascular dementia (10) Prostate cancer Surgical Problems: (1) H/O colonoscopy (2) History of surgery on arm (3) S/P partial colectomy (4) S/p prostate brachytherapy Family History FH: CAD (coronary artery disease) FATHER Social History Smoking Status: Former Smoker Alcohol Use: none Drug Use: none Marital Status: Housing Status: lives with family Occupation Status: retired Current/Historical Medications Scheduled Loperamide Hcl (Imodium A-D), 1 TAB PO DIRECTED Allergies Coded Allergies: Penicillins (Verified Allergy, Severe, SICK HIVES, 12/17/16) Physical Exam Vital Signs Date Time Temp Pulse Resp B/P (MAP) Pulse Ox O2 Delivery O2 Flow Rate FiO2 01/11/18 14:08 95 18 143/88 95 Room Air 01/11/18 12:42 36.8 97 18 141/71 98 Room Air 01/11/18 12:33 36.8 99 18 141/71 98 Room Air 01/11/18 12:31 89 Physical Exam GENERAL: Sitting up in bed, alert, disheveled, chronically ill appearing, well nourished, no distress, non-toxic EYE EXAM: normal conjunctiva. PERRL and EOM's intact. OROPHARYNX: no exudate, no erythema, lips, buccal mucosa, and tongue normal and mucous membranes are moist NECK: supple, no nuchal rigidity, no adenopathy, non-tender LUNGS: Clear to auscultation. Normal chest wall mechanics HEART: no murmurs, S1 normal and S2 normal ABDOMEN: abdomen soft, non-tender, normo-active bowel sounds, no masses, no rebound or guarding. BACK: Back is symmetrical on inspection and there is no deformity, no midline tenderness, no CVA tenderness. SKIN: no rashes and no bruising UPPER EXTREMITIES: upper extremities are grossly normal. LOWER EXTREMITIES: No pitting edema. NEURO EXAM: Awake alert following commands, pleasantly demented at baseline, cranial nerves II-XII intact, normal speech, no weakness of arms, no weakness of legs. No drift. Medical Decision & Procedures ER Provider Diagnostic Interpretation: Radiology results as stated below per my review and the radiologist's interpretation: CHEST ONE VIEW PORTABLE CLINICAL HISTORY: Altered mental status. COMPARISON STUDY: PET/CT December 10, 2017. FINDINGS: Patient is rotated. No pneumothorax or pleural effusion is noted. There is no consolidation or evidence for pulmonary edema. Cardiomediastinal silhouette is unremarkable. 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 IMPRESSION: No acute cardiopulmonary findings. Electronically signed by: Bola Cunningham M.D. CT SCAN OF THE BRAIN WITHOUT IV CONTRAST FINDINGS: Brain parenchyma: There are age-related involutional changes noting moderate to advanced subcortical and periventricular microangiopathic change. Multiple foci of cerebellar encephalomalacia are again noted and likely represent remote infarcts. There is no hemorrhage, mass effect, or evidence of acute territorial ischemia by CT criteria. Bustos-white matter is preserved. No extra-axial fluid collection is seen. Mineralization is noted in the basal ganglia. Ventricles, sulci, cisterns: Prominent secondary to involutional change. Intracranial vasculature: There is atherosclerotic calcification of the cavernous carotid and vertebral arteries. Calvarium: Unremarkable. Sinuses and mastoids: The visualized paranasal sinuses are clear. The mastoid air cells are well pneumatized. A 2.2 cm calcification is noted in the left nasopharynx, likely representing an osteoma. Orbits: The bony orbits are grossly intact. IMPRESSION: Senescent changes and remote infarcts as above. There is no hemorrhage, mass effect, or evidence of acute territorial ischemia by CT criteria. Electronically signed by: Kalpesh Pool M.D. Laboratory Results 01/11/18 12:40 Red Blood Count 4.21, Mean Corpuscular Volume 87.6, Mean Corpuscular Hemoglobin 29.2, Mean Corpuscular Hemoglobin Concent 33.3, Mean Platelet Volume 9.1, Neutrophils (%) (Auto) 78.7, Lymphocytes (%) (Auto) 12.9, Monocytes (%) (Auto) 7.9, Eosinophils (%) (Auto) 0.1, Basophils (%) (Auto) 0.1, Neutrophils # (Auto) 5.34, Lymphocytes # (Auto) 0.88, Monocytes # (Auto) 0.54, Eosinophils # (Auto) 0.01, Basophils # (Auto) 0.01 01/11/18 12:40 Test 01/11/18 12:40 01/11/18 13:05 White Blood Count 6.80 K/uL (4.8-10.8) Red Blood Count 4.21 M/uL (4.7-6.1) Hemoglobin 12.3 g/dL (14.0-18.0) Hematocrit 36.9 % (42-52) Mean Corpuscular Volume 87.6 fL (80-100) Mean Corpuscular Hemoglobin 29.2 pg (25-34) Mean Corpuscular Hemoglobin Concent 33.3 g/dl (32-36) Platelet Count 304 K/uL (130-400) Mean Platelet Volume 9.1 fL (7.4-10.4) Neutrophils (%) (Auto) 78.7 % Lymphocytes (%) (Auto) 12.9 % Monocytes (%) (Auto) 7.9 % Eosinophils (%) (Auto) 0.1 % Basophils (%) (Auto) 0.1 % Neutrophils # (Auto) 5.34 K/uL (1.4-6.5) Lymphocytes # (Auto) 0.88 K/uL (1.2-3.4) Monocytes # (Auto) 0.54 K/uL (0.11-0.59) Eosinophils # (Auto) 0.01 K/uL (0-0.5) Basophils # (Auto) 0.01 K/uL (0-0.2) RDW Standard Deviation 47.1 fL (36.4-46.3) RDW Coefficient of Variation 14.7 % (11.5-14.5) Immature Granulocyte % (Auto) 0.3 % Immature Granulocyte # (Auto) 0.02 K/uL (0.00-0.02) Prothrombin Time 9.6 SECONDS (9.0-12.0) Prothromb Time International Ratio 0.9 (0.9-1.1) Activated Partial Thromboplast Time 24.4 SECONDS (21.0-31.0) Partial Thromboplastin Ratio 0.9 Anion Gap 9.0 mmol/L (3-11) Est Creatinine Clear Calc Drug Dose 39.0 ml/min Estimated GFR () 67.5 Estimated GFR (Non- 58.2 BUN/Creatinine Ratio 11.0 (10-20) Calcium Level 8.8 mg/dl (8.5-10.1) Total Bilirubin 0.4 mg/dl (0.2-1) Direct Bilirubin 0.1 mg/dl (0-0.2) Aspartate Amino Transf (AST/SGOT) 22 U/L (15-37) Alanine Aminotransferase (ALT/SGPT) 17 U/L (12-78) Alkaline Phosphatase 150 U/L (45-117) Troponin I < 0.015 ng/ml (0-0.045) Total Protein 6.9 gm/dl (6.4-8.2) Albumin 3.2 gm/dl (3.4-5.0) Urine Color YELLOW Urine Appearance CLEAR (CLEAR) Urine pH 7.0 (4.5-7.5) Urine Specific [place] 1.013 (1.000-1.030) Urine Protein NEG (NEG) Urine Glucose (UA) NEG (NEG) Urine Ketones NEG (NEG) Urine Occult Blood NEG (NEG) Urine Nitrite NEG (NEG) Urine Bilirubin NEG (NEG) Urine Urobilinogen NEG (NEG) Urine Leukocyte Esterase NEG (NEG) Urine WBC (Auto) 1-5 /hpf (0-5) Urine RBC (Auto) 0-4 /hpf (0-4) Urine Hyaline Casts (Auto) 1-5 /lpf (0-5) Urine Epithelial Cells (Auto) 20-30 /lpf (0-5) Urine Bacteria (Auto) NEG (NEG) Laboratory results per my review. ECG Per My Interpretation Indication: weakness Rate (beats per minute): 86 Rhythm: sinus rhythm Findings: no ectopy, other (normal axis) ED Course ED COURSE: Vital signs were reviewed and showed tachycardic The patients medical record was reviewed The above diagnostic studies were performed and reviewed. ED treatments and interventions as stated above. 1238: The patient was evaluated in room C4. A complete history and physical examination was performed. 1350: I updated the patient on his test results. 1442: The patient is resting comfortably. 1452: Upon reevaluation, the patient is resting comfortably.I discussed my findings with the patient and he understands and agrees with the treatment plan. Based on the patients age, coexisting illnesses, exam and lab findings the decision to treat as an outpatient was made. The patient remained stable while under my care. The patient appeared well at the time of discharge. Medical Decision Differential Diagnosis includes but is not limited to dehydration, stroke, anemia, hypoglycemia, hyponatremia, hypernatremia, urinary tract infection, pneumonia, bronchitis, sepsis, gastroenteritis, additional abdominal pathology, metabolic abnormalities and infections. Patient is a 77-year-old male who presents the ER brought in by for weakness. They are walking back to the house and he notes his feet became very weak bilaterally. He has no other complaints. He did not pass out. No chest pain or shortness of breath. He does have Alzheimer's and notes that he normally does not have any complaints. CBC along with BMP, LFTs, bilirubin and troponin was negative. UA was negative. Chest x-ray and CT head showed no acute pathology. Based on symptoms I am uncertain of the true cause at this time. There is no sign of obvious signs of infection. No signs of CVA. He has no chest pain or shortness of breath. Nothing to suggest PE. Patient was able to up and ambulate within the room. He was discharged follow-up with PCP as an outpatient. Discussed reasons to return with at bedside. Medication Reconcilliation Current Medication List: was personally reviewed by me Blood Pressure Screening Patient's blood pressure: Normal blood pressure Impression Primary Impression: Weakness Scribe Attestation The scribe's documentation has been prepared under my direction and personally reviewed by me in its entirety. I confirm that the note above accurately reflects all work, treatment, procedures, and medical decision making performed by me. Departure Information Dispostion Home / Self-Care Referrals Ubaldo Zuniga M.D. (MEDICAL) (PCP) Forms HOME CARE DOCUMENTATION FORM, IMPORTANT VISIT INFORMATION, WORK / SCHOOL INSTRUCTIONS Patient Instructions ED Weakness [facility] Additional Instructions Please follow up with your primary care doctor with in the next 24 hours. Any worsening of your symptoms, please return to the ED immediately. This includes any fevers greater than 100.4, worsening pain, chest pain, shortness breath, persistent nausea, vomiting, unable to eat or drink, or any other concerning signs or symptoms from your standpoint.
== END 2018-01-11 15:05 | disposition home or self-care (01) ==
LOC: EDBD 12:14 → C.EDC 12:15
DX: R53.1 Weakness (principal); G30.9 Alzheimer's disease, unspecified; F02.80 Dementia in other diseases classified elsewhere, unspecified severity, without behavioral disturbance, psychotic disturbance, mood disturbance, and anxiety; N40.0 Benign prostatic hyperplasia without lower urinary tract symptoms; Z85.038 Personal history of other malignant neoplasm of large intestine; E78.5 Hyperlipidemia, unspecified; M10.9 Gout, unspecified; Z86.73 Personal history of transient ischemic attack (TIA), and cerebral infarction without residual deficits; I10 Essential (primary) hypertension; Z85.46 Personal history of malignant neoplasm of prostate; Z90.49 Acquired absence of other specified parts of digestive tract; Z82.49 Family history of ischemic heart disease and other diseases of the circulatory system; Z88.0 Allergy status to penicillin

== ENCOUNTER 2018-05-21 03:00 | Emergency (ER) | payer OTHER ==
[~2018-05-21] VITALS: Ht 160 cm; Wt 43.2 kg
[~2018-05-21 03:00] MED LIST changes: +CIPR-255 PO; +NRV5 PO
[2018-05-21 03:12] VITALS: TEMP 36.6; Ht 160 cm; Wt 43.2 kg
[2018-05-21] MEDS ORDERED: NRV/5 PO (03:30)
--- NOTE | 2018-05-21 03:39 | EMERGENCY ROOM VISIT NOTE ---
History Report prepared by Kendell: Raymond Ayoub Under the Supervision of: Dr. Virginia Osman D.O. First contact with patient: 03:10 Chief Complaint: FALL Stated Complaint: FALL/LACERATION History of Present Illness The patient is a 77 year old male who presents to the Emergency Room with complaints of constant pain in the back of his head that began following a falling episode that occurred shortly prior to arrival. The patient's family member at bedside states that the patient was trying to stand up out of his lift chair and fell to the ground. He hit the back of his head on the leg of a kirsten table. He denies any other injuries/pain from the fall. The family member notes that he has a history of Alzheimer's and is a frequent fall victim. He refuses to use a walker to help him walk. The patient is not on any blood thinners. Source of History: patient Onset: Shortly [employer] Position: head Quality: other (Pain from fall) Timing: constant Associated Symptoms: No LOC Review of Systems See HPI for pertinent positives & negatives. A total of 10 systems reviewed and were otherwise negative. Past Medical & Surgical Medical Problems: (1) BPH (benign prostatic hypertrophy) (2) Colon cancer (3) Dyslipidemia (4) Gout (5) History of CVA (cerebrovascular accident) (6) Hx of sinus bradycardia (7) Hyperlipemia (8) Hypertension Nos (9) Hypertensive urgency (10) Mixed Alzheimer's and vascular dementia (11) Prostate cancer Surgical Problems: (1) H/O colonoscopy (2) History of surgery on arm (3) S/P partial colectomy (4) S/p prostate brachytherapy Family History FH: CAD (coronary artery disease) FATHER Social History Smoking Status: Former Smoker Alcohol Use: none Drug Use: none Marital Status: Housing Status: lives with family Occupation Status: retired Current/Historical Medications Scheduled Amlodipine Besylate (Amlodipine Besylate), 5 MG PO DAILY Allergies Coded Allergies: Penicillins (Verified Allergy, Intermediate, SICK HIVES, 05/21/18) Physical Exam Vital Signs Date Time Temp Pulse Resp B/P (MAP) Pulse Ox O2 Delivery O2 Flow Rate FiO2 05/21/18 04:58 88 18 168/92 97 Room Air 05/21/18 03:12 36.6 89 18 152/90 97 Room Air Physical Exam HEENT: Head - There is an old contusion to the left side of the face. There is a 3.5 cm laceration to the left occiput. Pupils are equal, round, and reactive to light. Extraocular eye muscles are intact, and sclera are anicteric. Nose - moist nasal mucosa without discharge. Mouth - moist buccal mucosa. Oropharynx is nonerythematous and there is no tonsillar exudate or edema noted. Neck: Supple; no JVD, nuchal rigidity, cervical lymphadenopathy, or auscultated bruits. Heart: Regular rate and rhythm. There is a normal S1 and S2 with no murmurs, clicks, or gallops appreciated. Lungs: Clear to auscultation bilaterally with no wheezes, rales, or rhonchi. Abdomen: Soft, completely nontender, nondistended, with good bowel sounds. There are no palpable pulsatile masses or hepatosplenomegaly. There is no guarding, rigidity, or rebound noted. Extremities: There are multiple contusions in different stages of healing. No evidence of cyanosis, clubbing, or edema. There are easily palpable peripheral pulses. Skin: There are areas of excoriation to the arms bilaterally. Normal turgor Medical Decision & Procedures ER Provider Diagnostic Interpretation: Radiology results as stated below per my review and the radiologist's interpretation: CT HEAD: Comparison 03/27/2018 No evidence for acute intracranial hemorrhage or new mass effect. No evidence for acute calvarial fracture. Stable fracture deformities to the zygomatic arches. Extensive global cortical involutional changes with compensatory ventricular enlargement. Stable white matter hypodensities likely related to chronic small vessel ischemia as well as multifocal encephalomalacia in the cerebellum Small cortical or adjacent vascular calcification in the right parietal region. Senescent basal ganglia calcifications. Atherosclerosis. High density material again noted in the left nasal cavity. Radiologist: Doe Lewis MD Laboratory Results 05/21/18 04:02 05/21/18 04:02 Test 05/21/18 04:02 Red Blood Count 4.40 M/uL (4.7-6.1) Mean Corpuscular Volume 82.5 fL (80-100) Mean Corpuscular Hemoglobin 25.5 pg (25-34) Mean Corpuscular Hemoglobin Concent 30.9 g/dl (32-36) RDW Standard Deviation 44.4 fL (36.4-46.3) RDW Coefficient of Variation 14.7 % (11.5-14.5) Mean Platelet Volume 8.8 fL (7.4-10.4) Anion Gap 8.0 mmol/L (3-11) Est Creatinine Clear Calc Drug Dose 41.9 ml/min Estimated GFR () 92.7 Estimated GFR (Non- 80.0 BUN/Creatinine Ratio 14.0 (10-20) Calcium Level 8.5 mg/dl (8.5-10.1) Laboratory results per my review. Medications Administered Medications (Trade) Dose Ordered Sig/Alvin Route Start Time Stop Time Status Last Admin Dose Admin Lidocaine HCl (Buffered Lidocaine 1% Inj) 20 ml ONE ONCE INFIL 05/21/18 03:45 05/21/18 03:46 DC 05/21/18 04:31 20 ML Procedure Medications: Lidocaine HCl Please see procedure note dictation for laceration repair-Obed Johnson PA-C. ED Course 0329: Past medical records reviewed. The patient was evaluated in room A3. A complete history and physical exam was performed. Labs were drawn as above. Patient went for CT scan of the brain as described above. 0345: Ordered Lidocaine HCl 20 mL 0458: Upon reevaluation, the patient is resting in bed. I discussed findings and results with him. He verbalized agreement of the treatment plan. The patient was discharged home Medical Decision The patient is a 77 year old male who presents to the Emergency Department for pain to the back of his head following a falling episode. Differential diagnosis includes intracranial trauma, closed head injury, skull fracture. Laboratory results were reviewed and show; WBC of 11.2, Hemoglobin 11.2, normal renal function, normal glucose. This is a 77-year-old male patient who suffers frequent falls at home as he refuses to use his walker. He suffers from Alzheimer's disease. The patient fell out of his left ear tonight striking his head on a table. He has laceration to the occiput. CT scan of the brain was unremarkable but the patient appears to have a new left zygomatic arch fracture which is nondisplaced. This most likely occurred a couple of days ago when he struck left side of his face. Amado were placed in the laceration of the occiput by Obed Johnson PA-C. This will need to be removed in 10 days. I encouraged the patient to use his walker. The family will watch for signs of infection. Medication Reconcilliation Current Medication List: was personally reviewed by me Blood Pressure Screening Patient's blood pressure: Elevated blood pressure Blood pressure disposition: Elevated BP felt to be situational Impression Primary Impression: Scalp laceration Additional Impression: Fall Scribe Attestation The scribe's documentation has been prepared under my direction and personally reviewed by me in its entirety. I confirm that the note above accurately reflects all work, treatment, procedures, and medical decision making performed by me. Departure Information Dispostion Home / Self-Care Referrals Marion Del Real D.O. (PCP) Forms HOME CARE DOCUMENTATION FORM, IMPORTANT VISIT INFORMATION Patient Instructions My [facility] Additional Instructions Rest with head elevated. Have the amado removed in 10 days Watch for signs of infection Problem Qualifiers Primary Impression: Scalp laceration Encounter type: initial encounter Qualified Codes: S01.01XA - Laceration without foreign body of scalp, initial encounter Additional Impression: Fall Encounter type: initial encounter Qualified Codes: W19.XXXA - Unspecified fall, initial encounter
[2018-05-21] MEDS ORDERED: LIDOCAINE 1% BUFFERED INJ 20 ML VIAL INFIL ONE (03:45)
--- NOTE | 2018-05-21 04:34 | EMERGENCY ROOM VISIT NOTE ---
ED Visit Note Patient was seen and evaluated at the request of my attending physician, Dr. Osman, for a scalp laceration. Please see Dr. Osman's dictation for full history of present illness and emergency department course outside of this repair. In short, the patient suffered a fall with subsequent laceration to the back of his head. On exam the patient has a fairly linear 3.5 cm laceration along the left posterior occiput. This does gape and will require repair. There is minimal bleeding. Laceration repair. Patient elects to have their laceration repaired. Verbal consent was obtained to perform the procedure. There is an abundance of materials available for the procedure. Patient is not allergic to latex. Using sterile technique the wound was cleaned with Betadine. The area was sterilely draped. 5 ml of 1% buffered lidocaine was used to anesthetize the scalp laceration. Once the patient was anesthetized, the wound was copiously irrigated under pressure with sterile saline. The wound was explored and there were no deep structures injured such as tendons, bone, or significant blood vessels. The laceration was repaired using 6 juvenal with the wound edges being well approximated. Hemostasis was achieved. The area was cleaned with sterile saline and dressed with bacitracin ointment and bandage.Patient tolerated the procedure well without complications. Blood loss was negligible. Please refer to Dr. Osman's dictation for further patient course, plan, and disposition Problem List Medical Problems: (1) BPH (benign prostatic hypertrophy) Status: Chronic (2) Colon cancer Status: Resolved (3) Dyslipidemia Status: Chronic (4) Gout Status: Chronic (5) History of CVA (cerebrovascular accident) Status: Chronic (6) Hx of sinus bradycardia Status: Chronic (7) Hyperlipemia Status: Chronic (8) Hypertension Nos Status: Chronic (9) Mixed Alzheimer's and vascular dementia Status: Chronic (10) Prostate cancer Status: Resolved Surgical Problems: (1) H/O colonoscopy Status: Chronic (2) History of surgery on arm Status: Chronic (3) S/P partial colectomy Status: Chronic (4) S/p prostate brachytherapy Status: Chronic Current/Historical Medications Scheduled Amlodipine Besylate (Amlodipine Besylate), 5 MG PO DAILY Allergies Coded Allergies: Penicillins (Verified Allergy, Intermediate, SICK HIVES, 05/21/18) Vital Signs Date Time Temp Pulse Resp B/P (MAP) Pulse Ox O2 Delivery O2 Flow Rate FiO2 05/21/18 04:58 88 18 168/92 97 Room Air 05/21/18 03:12 36.6 89 18 152/90 97 Room Air Laboratory Results 05/21/18 04:02 05/21/18 04:02 Test 05/21/18 04:02 Red Blood Count 4.40 M/uL (4.7-6.1) Mean Corpuscular Volume 82.5 fL (80-100) Mean Corpuscular Hemoglobin 25.5 pg (25-34) Mean Corpuscular Hemoglobin Concent 30.9 g/dl (32-36) RDW Standard Deviation 44.4 fL (36.4-46.3) RDW Coefficient of Variation 14.7 % (11.5-14.5) Mean Platelet Volume 8.8 fL (7.4-10.4) Anion Gap 8.0 mmol/L (3-11) Est Creatinine Clear Calc Drug Dose 41.9 ml/min Estimated GFR () 92.7 Estimated GFR (Non- 80.0 BUN/Creatinine Ratio 14.0 (10-20) Calcium Level 8.5 mg/dl (8.5-10.1) Medications Administered Medications (Trade) Dose Ordered Sig/Alvin Route Start Time Stop Time Status Last Admin Dose Admin Lidocaine HCl (Buffered Lidocaine 1% Inj) 20 ml ONE ONCE INFIL 05/21/18 03:45 05/21/18 03:46 DC 05/21/18 04:31 20 ML Departure Information Referrals Marion Del Real D.O. (PCP) Patient Instructions My [facility]
[2018-05-21 04:36] LABS: HEMATOCRIT 36.3 % (42-52); HEMOGLOBIN 11.2 g/dL (14.0-18.0); MEAN CELL VOLUME 82.5 fL (80-100); MEAN CORPUSCULAR HEMOGLOBIN 25.5 pg (25-34); MEAN CORPUSCULAR HGB CONC 30.9 g/dl (32-36); MEAN PLATELET VOLUME 8.8 fL (7.4-10.4); PLATELET COUNT 481 K/uL (130-400); RED CELL DISTRIBUTION WIDTH CV 14.7 % (11.5-14.5); RED CELL DISTRIBUTION WIDTH SD 44.4 fL (36.4-46.3); WHITE BLOOD COUNT 11.22 K/uL (4.8-10.8)
[2018-05-21 04:48] LABS: CALCIUM 8.5 mg/dl (8.5-10.1); CREATININE 0.93 mg/dl (0.60-1.40); POTASSIUM 3.5 mmol/L (3.5-5.1)
[2018-05-21 04:58] VITALS: BP 168/92; PULSE 88; O2SAT 97
--- NOTE | 2018-05-21 06:43 | DIAGNOSTIC IMAGING REPORT ---
HEAD WITHOUT CONTRAST (CT) CLINICAL HISTORY: 77 years-old Male with eval for trauma. Acute posttraumatic head injury with fall TECHNIQUE: Multiple axial CT images of the head were obtained without contrast. A dose lowering technique was utilized adhering to the principles of ALARA. CT DOSE: 1689.23 mGy.cm COMPARISON: CT head 03/27/2018. FINDINGS: Atrophy with chronic microvascular ischemic changes and ex vacuo ventriculomegaly redemonstrated. Basal ganglia senescent calcifications. 6 mm hyperdensity about the right parietal distribution on image 26 series 7. Encephalomalacia from remote infarctions are noted involving the bilateral cerebellar hemispheres. There is no territorial infarct, midline shift or abnormal extra-axial collections. Mastoid air cells and middle ear cavities are clear. Osteoma about the left nasal turbinate. Mild mucosal thickening of the ethmoid air cells. Remote fractures of the zygomatic arches. Soft tissues and orbits are unremarkable. IMPRESSION: 1. 6 mm hyperdensity about the right parietal distribution on image 26 series 7 may reflect a cortical calcification or small cortical contusion and appears new from 03/27/2018. This finding will be called/faxed to the ED physician at the time of dictation. 2. Atrophy with ex vacuo ventriculomegaly and chronic microvascular ischemic changes. 3. Additional chronic changes as above. The above report was generated using voice recognition software. It may contain grammatical, syntax or spelling errors. Electronically signed by: Jesus Hyman M.D. 05/21/2018 6:42 AM Dictated Date/Time: 05/21/2018 6:34 AM
== END 2018-05-21 05:26 | disposition home or self-care (01) ==
LOC: EDBD 03:00 → C.EDA 03:01
DX: S01.01XA Laceration without foreign body of scalp, initial encounter (principal); E78.5 Hyperlipidemia, unspecified; I10 Essential (primary) hypertension; G30.9 Alzheimer's disease, unspecified; F02.80 Dementia in other diseases classified elsewhere, unspecified severity, without behavioral disturbance, psychotic disturbance, mood disturbance, and anxiety; R29.6 Repeated falls; Z79.899 Other long term (current) drug therapy; Z88.0 Allergy status to penicillin; Z85.038 Personal history of other malignant neoplasm of large intestine; Z85.46 Personal history of malignant neoplasm of prostate; Z86.73 Personal history of transient ischemic attack (TIA), and cerebral infarction without residual deficits; W17.89XA Other fall from one level to another, initial encounter